=== PATIENT | male | born 1940 | race Caucasian/White ===

== ENCOUNTER → 2016-10-28 10:22 | Outpatient (CLI) | payer MEDICARE, OTHER ==
[2016-04-12 16:15] VITALS: BMI 26.5
[~2016-10-28 10:22] MED LIST: ASPIRIN81 MG PO; BYSTOLIC10 MG PO; CARAFATE1 G PO; Dextrose 50%-Water I IV; GLUCOPHAGE500 MG PO; HEMOCYTE PLUS C1 CAP PO; HYDRALAZINE HC100 MG PO; INSULIN SC; JANUMET 50-1,001 TAB PO; JUNUMET; NEURONTIN 300300 MG PO; NORMODYNE / TR100 MG PO; PRILOSEC20 MG PO; PROSCAR5 MG PO; SYNTHROID75 MCG PO; ZESTORETIC 20-1 EACH PO; ZESTRIL40 MG PO
== END | disposition home or self-care (01) ==
LOC: D.RAD 08:00
DX: J90 Pleural effusion, not elsewhere classified (principal)

== ENCOUNTER 2017-05-05 11:20 | Observation (INO) | payer MEDICARE, OTHER ==
--- NOTE | ~2017-05-05 | HEMODYNAMI ---
PATIENT:BRENDEN ROBERT MEDICAL RECORD: [id number] : 38 LOCATION:[address] ADMISSION DATE: 05/05/17 Generatedon:05/06/20178:04 Patient name: BRENDEN ROBERT Patient #: [id number] SSN: : 1940 Date of study: 05/06/2017 Page: Of Hemodynamic Procedure Report Patient Data Patient Demographics Procedure consent was obtained First Name: BRENDEN Gender: Male Last Name: YESICA : 1940 Middle Initial: H Age: 77 year(s) Patient #: [id number] Race: Unknown Additional ID: [id number] Contact details Address: [address] [place] [address] State: [place] City: [place] Zip code: [address] Past Medical History Allergies: No known allergies Admission Admission Data Admission Date: 05/05/2017 Admission Time: 11:20 Room #: 2114 Procedure Procedure Types Cath Procedure Diagnostic Procedure LHC LHC w/Coronaries Miscellaneous Procedures Moderate Sedation up to 30 minutes Procedure Description Procedure Date Procedure Date: 05/06/2017 Procedure Start Time: 7:44 Procedure End Time: 8:03 Procedure Staff Name Function Willian Rodrigez MD Performing Physician Elizabeth Bermudez RT Scrub Markus Bowman RN Nurse Tonya Arevalo RT Monitor Procedure Data Cath Procedure Fluoroscopy Diagnostic fluoroscopy Total fluoroscopy Time: 3.8 time: 3.8 min min Diagnostic fluoroscopy Total fluoroscopy dose: 727 dose: 727 mGy mGy Contrast Material Contrast Material Type Amount (ml) Isovue 300 70 Entry Location Entry Primary Successful Side Size Upsize Upsize Entry Closure Succes sful Closure Location (Fr) 1 (Fr) 2 (Fr) Remarks Device Remarks Femoral Right 5 Fr Exoseal artery Estimated blood loss: 5 ml Diagnostic catheters Device Type Used For End Catheter Placement Cordis 5Fr JL 4.0 Left Coronary Catheter (MP) Angiography Cordis 5Fr 3DRC Catheter Right Coronary (MP) Angiography Cordis 5Fr Pigtail Aortic Root Catheter (MP) Angiography Diagnostic Infinity 5Fr Internal mammary IM catheter arteriography Procedure Complications No complications Procedure Medications Medication Administration Route Dosage 0.9% NaCl I.V. 100 ml/hr Oxygen NC 2 l/min Heparin Flush Bag added to field 2 bags (1000units/500ml NS) Lidocaine 2% added to field 20 Versed I.V. 1 mg Fentanyl I.V. 50 mcg Hemodynamics Rest Heart Rate: 61 (bpm) Snapshots Pre Cath Intra NCS Post Cath Vital Signs Time Heart Resp SPO2 etCO2 NIBP (mmHg) Rhythm Pain Sedation Rate (ipm) (%) (mmHg) Status Level (bpm) 7:22:39 60 15 98 0 188/82(168) NSR 0 (11) 10(A) , No pain 7:27:34 61 27 99 0 199/82(162) NSR 0 (11) 10(A) , No pain 7:32:29 61 25 98 12 191/78(160) NSR 0 (11) 10(A) , No pain 7:37:22 61 16 93 30.9 178/76(159) NSR 0 (11) 10(A) , No pain 7:43:06 63 14 97 18.1 171/73(149) NSR 0 (11) 9(A) , No pain 7:47:57 64 15 96 24.9 176/74(131) NSR 0 (11) 9(A) , No pain 7:52:48 86 16 97 20.3 171/78(140) NSR 0 (11) 9(A) , No pain 7:57:39 63 15 96 23.4 174/72(148) NSR 0 (11) 9(A) , No pain 8:02:30 62 15 97 11.3 184/75(143) NSR 0 (11) 9(A) , No pain Medications Time Medication Route Dose Verified Delivered Reason Notes Effec tiveness by by 7:25:20 0.9% NaCl I.V. 100 Markus Markus Per ml/hr Colby Bowman physician RN RN 7:25:33 Oxygen NC 2 Markus Markus Per l/min Colby Bowman physician RN RN 7:25:48 Heparin Flush added 2 Markus Markus used for Bag to bags Colby Bowman procedure (1000units/500ml field RN RN NS) 7:26:38 Lidocaine 2% added 20ml Markus Markus for local to vial Lorigan Lorigan anesthetic field RN RN 7:44:24 Versed I.V. 1 mg Markus Markus for Lorigan Lorigan sedation RN RN 7:44:38 Fentanyl I.V. 50 Markus Markus for mcg Lorigan Lorigan sedation RN manager marketing Log Time Note 7:08:55 Tonya Arevalo RT(R) sent for patient. Start room use. 7:08:56 Time tracking: Regular hours 7:09:00 Plan of Care:Hemodynamics will remain stable., Cardiac rhythm will remain stable., Comfort level will be maintained., Respiratory function will remain adequate., Patient/ family verbilizes understanding of procedure., Procedure tolerated without complication., Recovers from procedure without complications.. 7:21:36 Patient received from PCU to CCL 1 Alert and oriented. Tansferred to table in Supine position. 7:21:37 Warm blankets applied, and anuel hugger turned on for patient comfort. 7:21:37 Correct patient and procedure confirmed by team. 7:21:38 Signed procedure consent form obtained from patient. 7:21:39 ECG and BP/O2 sat monitors applied to patient. 7:21:41 Vital chart was started 7:21:41 Full Disclosure recording started 7:22:01 Rhythm: sinus rhythm 7:22:16 H&P Date Dictated: 05/05/2017 Within 30 days and on chart.. 7:22:17 Pre-procedure instructions explained to patient. 7:22:18 Pre-op teaching completed and patient verbalized understanding. 7:22:19 Family in waiting room. 7:22:21 Patient NPO since Midnight. 7:22:26 Patient allergic to No known allergies 7:22:28 Is the patient allergic to Iodine/contrast media? No. 7:22:30 Is patient on blood thinner?No 7:22:32 Patient diabetic? No. 7:22:35 Previous problem with sedation/anesthesia? No ? 7:22:37 Snore? Yes 7:22:38 Sleep apnea? No 7:22:39 Deviated septum? No 7:22:40 Opens mouth fully? Yes 7:22:41 Sticks out tongue? Yes 7:22:42 Airway obstruction? No ? 7:22:44 Dentures? No ? 7:23:26 Pre procedure: right dorsailis pedis pulse 2+ Normal; easily identifiable; not easily obliterated 7:23:29 Patient pain scale 0/10 ?. 7:25:20 0.9% NaCl 100 ml/hr I.V. was administered by Markus Bowman RN; Per physician; 7:25:33 Oxygen 2 l/min NC was administered by Markus Bowman RN; Per physician; 7:25:48 Heparin Flush Bag (1000units/500ml NS) 2 bags added to field was administered by Markus Bowman RN; used for procedure; 7::38 Lidocaine 2% 20ml vial added to field was administered by Markus Bowman RN; for local anesthetic; 7:29:46 IV patent on arrival in left forearm with 0.9% NaCl at [facility]. 7:29:55 Lab results completed and on chart. 7:30:01 Right groin area was prepped with chlora-prep and draped in sterile fashion 7:30:02 Alarms reviewed by R. N. 7:30:03 Sharps counted by scrub and verified by R.N. 7:30:06 Use device set Femoral Dx 7:30:07 Acist Syringe opened to sterile field. 7:30:07 Bag Decanter opened to sterile field. 7:30:07 Medline Cath Pack opened to sterile field. 7:30:08 Terumo 5Fr [place] Sheath opened to sterile field. 7:30:08 St Beni 260cm J .035 wire opened to sterile field. 7:30:09 Acist Hand Control opened to sterile field. 7:30:10 Acist Manifold opened to sterile field. 7:30:10 Diagnostic Infinity 5Fr Multipack catheter opened to sterile field. 7:30:11 Tegaderm 4 x 4 opened to sterile field. 7:30:43 Baseline sample Acquired. 7:36:55 Final Timeout: patient, procedure, and site verified with staff and physician. All members of the team are in agreement. 7:36:57 Right groin site verified by team. 7:37:00 Physical assessment completed. ASA score P 2 - A patient with mild systemic disease as per Willian Rodrigez MD. 7:37:03 Sedation plan: IV Moderate Sedation Versed, Fentanyl 7:38:00 Zero performed for pressure channel P1 7:38:03 Zero performed for pressure channel P1 7:44:24 Versed 1 mg I.V. was administered by Markus Bowman RN; for sedation; 7:44:38 Fentanyl 50 mcg I.V. was administered by Markus Bowman RN; for sedation; 7:44:49 Procedure started. 7:44:55 Local anesthetic to right femoral artery with Lidocaine 2% by Willian Rodrigez MD.INITIAL ACCESS ONLY 7:46:07 A 5 Fr sheath was inserted into the Right Femoral artery 7:46:57 A Cordis 5Fr JL 4.0 Catheter (MP) was advanced over the wire and used for Left Coronary Angiography. 7:49:12 Catheter removed. 7:50:03 A Cordis 5Fr 3DRC Catheter (MP) was advanced over the wire and used for Right Coronary Angiography. 7:51:00 Catheter removed. 7:51:41 Cordis 5Fr Exoseal opened to sterile field. 7:52:26 A Cordis 5Fr Pigtail Catheter (MP) was advanced over the wire and used for Aortic Root Angiography. 7:52:33 Injector settings: Ml/sec: 15, Volume: 30, 7:53:14 Catheter removed. 7:54:09 J wire contaminated. 7:54:42 St Beni 260cm J .035 wire opened to sterile field. 7:54:54 New 260 J wire wire advanced. 7:55:37 A Diagnostic Infinity 5Fr IM catheter was advanced over the wire and used for Internal mammary arteriography. to LAD 7:57:36 Catheter removed. 7:58:21 Sheath removed intact; hemostasis achieved with Exoseal to the Right Femoral artery. 7:58:24 Procedure ended.(Physican Out) 7:58:37 Fluoroscopy time 03.80 minutes. 7:58:46 Fluoroscopy dose: 727 mGy 7:58:46 Flurop Dose total: 727 7:58:51 Contrast amount:Isovue 300 70ml. 7:58:52 Sharps counted by scrub and verified by R.N. 7:58:53 Insertion/operative site no bleeding no hematoma. 7:58:56 Post-op/insertion site Right Femoral artery dressed using a 4 x 4 and Tegaderm. 7:58:59 Post right femoral artery:stable, clean and dry 7:59:01 Post Procedure Pulses reassessed and unchanged 7:59:03 Post-procedure physical assessment completed. ASA score P 2 - A patient with mild systemic disease as per Willian Rodrigez MD. 7:59:05 Post procedure rhythm: unchanged. 7:59:08 Estimated blood loss: 5 ml 7:59:09 Post procedure instruction explained to patient.Patient verbalizes understanding. 7:59:10 Patient needs reinforcement of post procedure teaching. 7:59:20 Procedure type changed to Cath procedure, Diagnostic procedure, LHC, LHC w/Coronaries, Miscellaneous Procedures, Moderate Sedation up to 30 minutes 7:59:27 Procedure Complication : No complications 7:59:30 See physician's report for complete and final results. 8:01:42 Procedure and supply charges have been captured, reviewed, submitted and are correct. 8:03:41 Vital chart was stopped 8:03:44 Report given to PCU. 8:03:49 Patient transfered to PCU with Bed. 8:03:57 Procedure ended. 8:03:57 Full Disclosure recording stopped 8:04:00 End room use (Document Last) Device Usage Item Name Manufacture Quantity Catalog Hospital Part Current Minimal Lo t# / Number Charge Number Stock Stock Serial# Code Acist Acist 1 38020 [id number] 369935 [id number] 20 Syringe Medical [employer] Inc Bag Microtek 1 2002S 401000 99787 [id number] 5 Decanter Medical Inc. Medline Cardinal 1 [id number] [id number] 71753 029885 5 Cath Pack Health Terumo 5Fr Terumo 1 [id number] 078781 026901 279869 [address] [facility] St Beni 2 975887 793597 081211 798117 30 260cm J .035 wire Acist Hand Acist 1 32393 073840 806365 572148 5 Control Medical Systems Inc Acist Acist 1 87314 904367 332514 435246 5 Manifold Medical Systems Inc Diagnostic Cardinal 1 [id number] 897714 84477 381094 30 Infinity Health 5Fr Multipack catheter Tegaderm 4 3M 1 1626W 476587 430672 494222 5 x 4 Cordis 5Fr Cardinal 1 223890 5 JL 4.0 Health Catheter (MP) Cordis 5Fr Cardinal 1 509373 5 3DRC Health Catheter (MP) Cordis 5Fr Cardinal 1 EX500 824765 981842 788621 10 Exoseal Health Cordis 5Fr Cardinal 1 709563 5 Pigtail Health Catheter (MP) Diagnostic Cardinal 1 [id number] 656962 761310 445605 5 Infinity Health 5Fr IM catheter Signature Audit [place] Stage Time Signature Unsigned Intra-Procedure 05/06/2017 Tonya 8:04:10 AM Counts RT(R) Signatures Monitor : Tonya Signature : Counts RT Date : Time : [place] [id number] [place] [id number]
--- NOTE | 2017-05-05 11:30 | NUR ---
PATIENT TO ROOM, PATIENT IS ALERT AND ORIENTED AT THIS TIME. PATIENT AMBULATING AROUND ROOM. DENIES ANY NEEDS, STATES HE HAS BEEN HAVING CHEST PAIN, IT IS EASING UP RIGHT NOW, BUT SOMETIMES IT GETS SEVERE. PUT PATIENT ON 2L/MIN VIA NC OF O2, AND EKG DONE. WILL NOTIFY DR IRIZARRY THAT PATIENT IS HERE. BED LOW AND LOCKED, CALL LIGHT IN REACH. CPOC
--- NOTE | 2017-05-05 13:00 | NUR ---
22 G IV STARTED TO L HAND, SL AT THIS TIME. PATIENT DENIES ANY NEEDS. CPOC
[2017-05-05] MEDS ORDERED: COREG25 MG PO (13:24)
[2017-05-05] MEDS ORDERED: DIOVAN HCT 160/1 TA1 PO (13:24)
[2017-05-05] MEDS ORDERED: SYNTHROID50 MCG PO (13:27)
[2017-05-05] MEDS ORDERED: CRESTOR20 MG PO (13:29)
[2017-05-05 14:26] LABS: ANION GAP 13.5 mmol/L (8-16); CALCIUM 9.2 mg/dL (8.5-10.1); CARBON DIOXIDE 23.4 mmol/L (21.0-32.0); CREATININE - SERUM 2.2 mg/dL (0.6-1.3); POTASSIUM - SERUM 4.9 mmol/L (3.5-5.1)
[2017-05-05] MEDS ORDERED: NORMODYNE / TR100 MG PO (14:47)
[2017-05-05 15:00] LABS: HEMATOCRIT 30.3 % (42.0-54.0); HEMOGLOBIN 10.2 g/dL (13.5-17.5); MCH 29.4 pg (26.0-34.0); MCHC 33.7 g/dL (31.0-37.0); MCV 87.3 fL (80.0-100.0); MEAN PLATELET VOLUME 10.7 fL (7.4-10.4); RBC 3.47 10x6/uL (4.20-6.10); RDW 13.1 % (11.5-14.5); WBC 4.7 10x3/uL (4.8-10.8)
[2017-05-05 15:01] LABS: PLATELET COUNT 90 10x3/uL (130-400)
[2017-05-05 15:18] LABS: PLATELET ESTIMATE DECREASED
[2017-05-05 15:28] LABS: CKMB 2.1 U/L (0.0-3.6); CREATINE KINASE 114 UL (21-232); TROPONIN-I < 0.017 ng/mL (0.000-0.060)
[2017-05-05 16:35] VITALS: BP 182/72; BMI 26.3
--- NOTE | 2017-05-05 17:12 | NUR ---
PATIENT FSBS 181, REFUSED INSULIN AT THIS TIME, STATES HE DOES NOT TAKE INSULIN AT HOME. WILL MONITOR, CPOC
--- NOTE | 2017-05-05 17:40 | HP ---
PATIENT: BRENDEN ROBERT MEDICAL RECORD: [id number] ACCOUNT: [id number] LOCATION:[address] : 39 ADMISSION DATE: 05/05/17 HISTORY AND PHYSICAL EXAMINATION NameBRENDEN ROBERT (77yo, M) ID# [id number]. Date/Time05/05/2017 09:12IDYXD25/24/193[facility] Dept.NPP_[facility] ClinicProviderEDSHAISTA ESCAMILLA MDInsuranceMed Primary: [place] Insurance # : [id number] PCP : BAYLEE ORME Referring Provider Name : BAYLEE ROME Employer Name : RETIRED Med Secondary: FAMILY LIFE (MEDICARE SUPPLEMENT) Insurance # : [id number] PCP : BAYLEE ROME Referring Provider Name : BAYLEE ROME Employer Name : RETIRED Prescription: CMX - Member is eligible. 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/12/16 Patient's Care Team Primary Care Provider (): BAYLEE ROME: [address] [place] [address] , [address], [place] [address], , Referring Provider (): BAYLEE ROME: [address] [place] [address] , [address], [place] [address], , City Recorder: ISABELL IRIZARRY MD: [address] [place] [address] [address], [place] [address], , [facility] ([facility]): [address], [place] [address], , Vitals BP:130/70 sitting R arm 05/05/2017 10:06 amHR:60R/R 05/05/2017 10:06 amHt:6 ft 2 in 05/05/2017 10:03 amWt:205 lbs 05/05/2017 10:05 amBMI:26.3 05/05/2017 10:05 amAllergies Reviewed Allergies NKDAMedications Reviewed Medications Accu-Chek Nasra Plus Meter TO TEST BLOOD SUGAR08/19/16 filledsurescriptsAccu-Chek Nasra Plus test strips TEST BLOOD SUGAR QAM TO MONITOR BLOOD GLUCOSE BEFORE RQMLPIWQA41/31/17 filledsurescriptsAccu-Chek Softclix Lancets TEST ONCE QAM08/19/16 filledsurescriptsALPRAZolam 0.5 mg edubdg73/17/16 filledCaremarkaspirin 81 mg chewable tablet BACK SIZER 1 T PO D002/20/16 filledsurescriptsatorvastatin 40 mg eourex84/06/17 filledCaremarkBD Insulin Pen Needle UF Mini 31 gauge x 09/30" FOR ONCE DAILY USE WITH FGEKZE87/27/16 filledCaremarkcarvedilol 25 mg /21/17 filledCaremarkcholecalciferol (vitamin D3) 1,000 unit tablet TK 1 T PO D009/17/16 filledsurescriptsfinasteride 5 mg tablet TK 1 T PO QD05/10/16 filledsurescriptsfurosemide 20 mg fqaoax95/11/17 filledCaremarkgabapentin 100 mg capsule TK 1 C PO TID02/09/17 filledsurescriptsgabapentin 300 mg capsule TK 1 C PO TID108/19/15 filledsurescriptshydrALAZINE 100 mg tablet TK 1 T PO Q 12 H002/11/17 filledsurescriptsketoconazole 2 % shampoo APPLY TO THE AFFECTED AREA(S), LATHER, LEAVE IN PLACE FOR 5 MINUTES, AND THEN RINSE HISTORY AND PHYSICAL [id number] YESICABRENDEN H OFF WITH WATER BY TOPICAL ROUTE ONCE DAILY07/14/16 filledsurescriptslabetalol 100 mg tablet TK 1 T PO BID02/18/17 filledsurescriptslevoFLOXacin 500 mg tablet Take 1 tablet(s) every 24 hours by oral route for 5 days.04/21/17 filledCaremarklevothyroxine 75 mcg tablet TK 1 T PO QD02/19/17 filledsurescriptslisinopril 20 mg /11/17 filledCaremarkmethylPREDNISolone 4 mg tablets in a dose pack DIRECTED ON PACKAGE FFWLSFQIGRTK78/05/17 filledCaremarkneomycin 3.5 mg/g-polymyxin B 10,000 unit/g-dexameth 0.1 % eye oint01/05/17 filledCaremarkomeprazole 20 mg capsule,delayed release TK 2 CS PO ONCE A DAY09/14/16 filledCaremarkpotassium chloride ER 20 mEq tablet,extended release(part/cryst) TK 1 T PO QD FOR 21 DAYS04/29/16 filledsurescriptspromethazine-DM 6.25 mg-15 mg/5 mL syrup TK 5 ML PO Q 6 H PRN1 filledsurescriptsrosuvastatin 20 mg tablet TK 1 T PO ASVFKRF22/07/17 filledsurescriptstamsulosin 0.4 mg capsule TK 1 C PO QD02/09/17 filledsurescriptsvalsartan 160 mg-hydrochlorothiazide 25 mg tablet TK 1 T PO QD03/24/17 filledsurescripts Some medications listed in Document: #[id number] could not be added to this patient's chart. Please review this document and add these medications to the patient's chart manually as needed. Vaccines Reviewed Vaccines Vaccine TypeDateAmt.RouteSiteLot #Mfr.Exp. DateDate on VISVIS GivenVaccinatorInfluenzainfluenza, injectable, axmjitalfmsd47/11/17influenza, seasonal, tualjejqje98/02/13Some vaccines listed in Document: #[id number] could not be added to this patient's chart. Please review this document and add these vaccines to the patient's chart manually as needed. 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 Iron deficiency anemia Anemia Continuous chronic alcoholism Stress Aortic valve disorder Essential hypertension Coronary arteriosclerosis Ischemic heart disease Aortic valve stenosis Pleural effusion Chronic gastritis Gastritis Irritable bowel syndrome with diarrhea Gastrointestinal hemorrhage HISTORY AND PHYSICAL [id number] BRENDEN ROBERT Chronic renal failure Chronic renal impairment Benign prostatic hyperplasia Benign prostatic hypertrophy without outflow obstruction Neck pain Pes planus Acquired hallux rigidus Deformity of foot Headache Heart murmur Abdominal pain Bunion Family History Reviewed Family History Unspecified Relation- Diabetes mellitus - Siblings (previously recorded as Diabetes) - Hypercholesterolemia - Brother (previously recorded as High Cholesterol) - Depressive disorder - Brother (previously recorded as Depression) - Cerebrovascular accident - Siblings (previously recorded as Stroke) - Hypertensive disorder - Siblings (previously recorded as High Blood Pressure) - Heart disease - SiblingsSocial History Reviewed Social History Cardiology and General Smoking Status: Former smoker (Notes: quit 25 yrs ago) High Cholesterol: Y High blood pressure: Y Alcohol intake: Occasional (Notes: 10/wk) Occupation: Retired [employer] Marital status: Advance directive: Y Is blood transfusion acceptable in an emergency?: Y Education: 12 Caffeine intake: Occasional Surgical History Reviewed Surgical History Other - right foot Other - 04/12/2016 - CT guided L thoracentesis, Dr Caroline Miles CABG - 03/12/2016 Other - 2013 - prostate Other - 2010 - right knee Other - 2003 - left knee Past Medical History Reviewed Past Medical History Anemia: Y Blurred Vision: Y Carotid Stenosis: Y Coronary Artery Disease: Y Diabetes: Y Heart Failure: Y Heart Murmur: Y High Blood Pressure: Y Joint Pain or Swelling: Y Shortness of Breath: Y HISTORY AND PHYSICAL [id number] BRENDEN ROBERT Notes: has been treated in past for alcoholism and still drinks two glasses of wine daily Documents for Discussion N/A Screening None recorded. HPI Coronary Artery Disease F/U Reported by patient. Severity: chest discomfort with household activities/yard work; "I feel like an elephant is sitting on my chest." Associated Symptoms: chest pain with exertion aortic valve replacement Coronary artery bypass ROS Patient reports abdominal pain but reports no vomiting, normal appetite, no diarrhea, not vomiting blood, no nausea, and no constipation. He reports arthralgias/joint pain but reports no muscle aches, no muscle weakness, no back pain, and no swelling in the extremities. He reports no loss of consciousness, no weakness, no numbness, no seizures, no dizziness, and no headaches; pain in feet. He reports no fever, no night sweats, no significant weight gain, no significant weight loss, and no exercise intolerance. He reports no chest pain, no a rm pain on exertion, no shortness of breath when walking, no shortness of breath when lying down, no palpitations, and no known heart murmur. He reports no cough, no wheezing, no shortness of breath, and no coughing up blood. He reports no incontinence, n o difficulty urinating, no hematuria, and no increased frequency. He reports no abnormal mole, no jaundice, and no rashes. He reports no depression, no sleep disturbances, feeling safe in relationship, and no alcohol abuse. ROS as noted in the HPI Physical Exam Patient is a 77-year-old male. Constitutional: General Appearance: healthy-appearing, well-nourished, and well-developed. Level of Distress: NAD. Ambulation: ambulating normally. Psychiatric: Insight: good judgement. Mental Status: normal mood and affect and active and alert. Orientation: to time, place, and person. Memory: recent memory normal and remote memory normal. Head: Head: normocephalic and atraumatic. Lungs: Respiratory effort: no dyspnea. Percussion: no dullness, flatness, or hyperresonance. Auscultation: no wheezing, rales/crackles, or rhonchi and breath sounds normal, good air movement, and CTA except as noted. Cardiovascular: Apical Impulse: not displaced. Heart Auscultation: normal S1 and S2; no murmurs, rubs, or gallops; and RRR. Neck vessels: no carotid bruits. Pulses including femoral / pedal: normal throughout. Musculoskeletal:: Motor Strength and Tone: normal and normal tone. Joints, Bones, and Muscles: no contractures, malalignme nt, or bony abnormalities and normal movement of all extremities and tenderness. Extremities: no cyanosis, edema, varicosities, or palpable cord. Skin: Inspection and palpation: no rash, lesions, ulcer, induration, nodules, HISTORY AND PHYSICAL [id number] YESICA,BRENDEN H jaundice, or abnormal nevi and good turgor. Nails: normal. Back: Thoracolumbar Appearance: kyphosis. Assessment / Plan aortic valve replacement Coronary artery bypass Angina 1. Coronary arteriosclerosis I25.10: Atherosclerotic heart disease of [place] coronary artery without angina pectoris Discussion Notes needs admission and cardiac catheterization Return to Office None recorded. NILAM ESCAMILLA MD at 1740 CC: [id number] DICTATION DATE: 05/05/17 0945 RETAIL MAINTENANCE TECHNICIAN: MOUNIKA 05/05/17 1307 ADM IN [facility] [address] [place] [address]
--- NOTE | 2017-05-05 17:46 | NUR ---
PATIENT SITTING UP IN BED EATING DINNER, DENIES ANY PAIN AT THIS TIME. CPOC
--- NOTE | 2017-05-05 18:41 | NUR ---
PATIENT SITTING UP IN BED, CONSENTS SIGNED FOR TOMORROWS BUSINESS PROJECT ANALYST. PATIENT DENIES ANY NEEDS. CPOC
--- NOTE | 2017-05-05 19:32 | NUR ---
ASSESSMENT COMPELTE, A&O. RESPERATIONS EVEN ON AT 2 LITER VIA NC. IV TO LEFT HAND SL, SITE CLEAN AND DRY. PT DENIES PAIN OR NEEDS AT THIS TIME, BED LOW, CL IN REACH.
[2017-05-05 20:00] VITALS: BP 173/66
[2017-05-05 20:43] LABS: CKMB 1.5 U/L (0.0-3.6); CREATINE KINASE 93 UL (21-232); TROPONIN-I 0.019 ng/mL (0.000-0.060)
--- NOTE | 2017-05-05 21:24 | NUR ---
HS MEDS GIVEN WITH FRESH ICE WATER, BS 144, NO COVERAGE GIVEN PER S/S. PT DENIES PAIN OR NEEDS BED LOW, CL IN REACH.
--- NOTE | 2017-05-06 00:14 | NUR ---
TRANSIT DRIVER AT BED SIDE TO OBTAIN VITALS, PT DENIES NEEDS.
--- NOTE | 2017-05-06 02:12 | NUR ---
RESTING WITH EYES CLOSED, RESPERATIONS EVEN, NO S/S DISTRESS NOTED.
[2017-05-06 02:21] LABS: CKMB 1.3 U/L (0.0-3.6); CREATINE KINASE 82 UL (21-232); TROPONIN-I 0.019 ng/mL (0.000-0.060)
--- NOTE | 2017-05-06 02:24 | NUR ---
LYING IN BED, CALL LIGHT IN REACH. WILL CONTINUE WITH PLAN OF CARE. 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
[2017-05-06 04:00] VITALS: BP 145/68
--- NOTE | 2017-05-06 06:35 | NUR ---
TOP LIFT AND AUTOMATIC WINDOW REPAIRER AT BED SIDE FOR HIBICLENSE BATH.
--- NOTE | 2017-05-06 07:16 | NUR ---
TO PHOTOGRAPHY ASSISTANT PER BED
--- NOTE | 2017-05-06 08:20 | NUR ---
PATIENT RETURNED FROM NUCLEAR MEDICINE PHYSICIAN PER BED. DRESSING CLEAN AND DRY. NO C/O PAIN OR DISCOMOFRT. ASSESSMENT DONE. STATES NO NEEDS AT THIS TIME.
--- NOTE | 2017-05-06 09:49 | NUR ---
BACK FROM LAWYER PROBATE. AT BS. CALL LIGHT IN REACH. WILL CONT. PLAN OF CARE.
--- NOTE | 2017-05-06 12:52 | NUR ---
NO C/O PAIN OR DISCOMFORT. DRESSING DRY AND CLEAN. PATIENT DC HOME PER FAMILY VEHICLE.
--- NOTE | 2017-05-13 16:56 | EC ---
PATIENT:BRENDEN ROBERT DATE OF SERVICE: 05/05/17 SEX: M MEDICAL RECORD: [id number] DATE OF : 38 LOCATION:D. D.211 AGE OF PATIENT: 77 ADMISSION DATE: 05/05/17 REFERRING PHYSICIAN: INTERPRETING PHYSICIAN: STEFANO ETIENNE MD ECHOCARDIOGRAM REPORT ECHO CHARGES 4 ECHO COMPLETE CLINICAL DIAGNOSIS: UNSTABLE ANGINA HX OF CAD/CABG ECHOCARDIOGRAPHIC MEASUREMENTS (adult normal given) AC root (d.<3.7cm) 3.3 cm LV Septum d (<1.2 cm> 1.5 cm Valve Excursion 1.5 cm LV Septum (systole) 1.9 cm Left Atria (s.<4.0cm> 4.6 cm LVPW d(<1.2cm) 1.9 cm RV (d.<2.3cm) 5.1 cm LVPW (sytole) 2.0 cm LV diastole(<5.6CM) 6.0 cm MV E-F(>70mm/sec) cm LV systole 3.9 cm LVOT Diameter 1.8 cm MV exc.(>10mm) 1.9 cm Est.ejection fraction (50-75%) % Pericardial Effusion N DOPPLER: LVIT cm/sec A 102 cm/sec E 94.0 cm/sec LA cm/sec RVSP 28 mmHg LVOT 92 cm/sec AOP1/2T m/s Asc. Ao 218 cm/sec RVOT 99 cm/sec RA cm/sec PA 143 cm/sec AV Gradient Peak 19.03mmHg AV Mean 9.77 mmHg AV Area 1.2 cm MV Gradient Peak 4.67 mmHg MV Mean 2.32 mmHg MV Area cm COMMENTS: Model Technician: Keagan JACOBSON Geospatial Specialist: 2 Dr. Rodrigez TAPE# PACS DATE OF SERVICE: 05/05/2017 Echocardiogram FINDINGS: 1. Left ventricular chamber size is mildly dilated. Left ventricular systolic function is preserved. Overall ejection fraction estimated at 55%. 2. The left atrium is mildly dilated at 4.6 cm. Right atrium and right ventricular chamber sizes are as well mildly dilated. 3. 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 Valve area calculates 1.2 cm-squared. There is gradient of 19 mm across the valve. The remaining valvular structures have normal structure and motion. 4. Doppler interrogation only reveals mild tricuspid regurgitation. No other valvular insufficiency or stenosis. 5. No evidence of pericardial effusion or left ventricular thrombus. TRANSINT:[id number] Voice Confirmation ID: [id number] DOCUMENT ID: [id number] STEFANO ETIENNE MD at 1656 CC: [id number] DICTATION DATE: 05/05/17 1550 BASIN TENDER: 05/05/17 2018 DIS IN 05/06/17 [id number] [place] [address]
== END 2017-05-06 15:25 | disposition home or self-care (01) ==
LOC: D.M2 11:20 → OBSVTIME 11:21 → D.M2 05-06 15:25
PROVIDERS: ADMIT Internal Medicine Cardiovascular Disease
DX: R07.89 Other chest pain (principal); I25.10 Atherosclerotic heart disease of native coronary artery without angina pectoris; Z95.1 Presence of aortocoronary bypass graft; I10 Essential (primary) hypertension; Z87.891 Personal history of nicotine dependence; E11.40 Type 2 diabetes mellitus with diabetic neuropathy, unspecified

== ENCOUNTER 2017-06-23 10:59 | Outpatient (CLI) | payer MEDICARE, OTHER ==
[~2017-06-23] VITALS: Ht 188 cm; Wt 95.0 kg
[~2017-06-23 10:59] MED LIST changes: +COREG25 MG PO; +CRESTOR20 MG PO; +DIOVAN HCT 160/1 TA1 PO; +SYNTHROID50 MCG PO
[2017-06-23 12:12] LABS: BASOPHILS 0.4 % (0-2); HEMATOCRIT 28.9 % (42.0-54.0); HEMOGLOBIN 9.6 g/dL (13.5-17.5); LYMPHOCYTES 14.4 % (15-50); MCH 29.4 pg (26.0-34.0); MCHC 33.2 g/dL (31.0-37.0); MCV 88.7 fL (80.0-100.0); MEAN PLATELET VOLUME 10.2 fL (7.4-10.4); MONOCYTES 10.8 % (2-11); NEUTROPHILS 71.4 % (40-80); PLATELET COUNT 90 10x3/uL (130-400); RBC 3.26 10x6/uL (4.20-6.10); RDW 13.6 % (11.5-14.5); WBC 4.6 10x3/uL (4.8-10.8)
[2017-06-23 12:33] VITALS: Ht 188 cm; Wt 95.0 kg
[2017-06-23 12:35] LABS: ANION GAP 12.5 mmol/L (8-16); CALCIUM 8.9 mg/dL (8.5-10.1); CARBON DIOXIDE 26.2 mmol/L (21.0-32.0); CREATININE - SERUM 2.5 mg/dL (0.6-1.3); POTASSIUM - SERUM 4.7 mmol/L (3.5-5.1)
[2017-06-23 12:38] LABS: INR 1.24 (0.85-1.17); PROTIME 15.2 SECONDS (11.6-15.0)
[2017-06-23 13:01] LABS: APTT 33.4 SECONDS (22.8-39.4)
[2017-06-23 16:06] LABS: PROTEIN - BODY FLUID 3.8 G/DL
--- NOTE | 2017-06-23 16:31 | NUR ---
1430--ALL VITAL SIGNS CHARTED ON POST PROCEDURE VITAL SIGN SHEET ON CHART. MARIA R THOMAS
[2017-06-23 17:02] LABS: MACROPHAGES BF 4 %; NEUT - BF 4 %
--- NOTE | 2017-06-23 17:08 | NUR ---
1645 REPORT FROM STONEY VALDEZ R.N. PATIENT RESTING RESP NONLABORED. DENIES SOB. JESS DIRECT MARKETING EXECUTIVE CALLED EARLIER AND STATED NO PNEUMO AND THAT CHEST XRAY WAS OKAY. CLARIFIED ORDER HOME AT 1800.
--- NOTE | 2017-06-23 18:10 | NUR ---
1750 WENT OVER DISCHARGE INSTRUCTIONS AND VERBALLY UNDERSTANDS.
--- NOTE | 2017-06-23 18:11 | NUR ---
1800 TO HOME VIA W/C WITH .
[2017-06-24 16:13] LABS: AFB SPECIMEN PROCESSING Not Indicated (())
[2017-06-27 10:10] LABS: FUNGUS STAIN Final report (())
[2017-07-22 13:14] LABS: FUNGUS MYCOLOGY CULTURE Final report (())
[2017-08-12 11:18] LABS: ACID FAST CULTURE Negative (()); ACID FAST SMEAR Negative (())
== END 2017-06-23 18:00 | disposition home or self-care (01) ==
LOC: D.OPS 10:59 → D.CT 13:00 → D.OPS 13:00 → D.CT 06-24 11:00
PROVIDERS: Radiology Diagnostic Radiology
DX: J90 Pleural effusion, not elsewhere classified (principal); Z01.812 Encounter for preprocedural laboratory examination; R06.02 Shortness of breath

== ENCOUNTER → 2017-06-30 11:29 | Outpatient (CLI) | payer MEDICARE, OTHER ==
[2017-06-23 12:33] VITALS: BMI 26.9
== END | disposition home or self-care (01) ==
LOC: D.CT 11:29
DX: J90 Pleural effusion, not elsewhere classified (principal)

== ENCOUNTER → 2017-12-07 11:01 | Outpatient (CLI) | payer MEDICARE, OTHER ==
[2017-06-23 12:33] VITALS: BMI 26.9
== END | disposition home or self-care (01) ==
LOC: D.RAD 11:00
DX: R06.00 Dyspnea, unspecified (principal)

== ENCOUNTER 2018-05-18 05:20 | Day surgery (SDC) | payer MEDICARE, OTHER ==
[2018-05-17 16:08] LABS: BASOPHILS 0.5 % (0-2); EOSINOPHILS 3.4 % (0-7); HEMATOCRIT 30.1 % (42.0-54.0); HEMOGLOBIN 10.1 g/dL (13.5-17.5); IMMATURE GRANULOCYTES 0.2 % (0-5); LYMPHOCYTES 13.3 % (15-50); MCH 29.1 pg (26.0-34.0); MCHC 33.6 g/dL (31.0-37.0); MCV 86.7 fL (80.0-100.0); MEAN PLATELET VOLUME 10.4 fL (7.4-10.4); MONOCYTES 11.4 % (2-11); NEUTROPHILS 71.2 % (40-80); PLATELET COUNT 105 10x3/uL (130-400); RBC 3.47 10x6/uL (4.20-6.10); RDW 13.9 % (11.5-14.5); WBC 6.3 10x3/uL (4.8-10.8)
[~2018-05-18] VITALS: Ht 188 cm; Wt 97.5 kg
--- NOTE | ~2018-05-18 | OP ---
PATIENT NAME: BRENDEN ROBERT MEDICAL RECORD: [id number] :38 LOCATION:[facility] ADMISSION DATE: SURGEON: DENNYS ASHRAF MD DATE OF OPERATION: 05/18/2018 SURGEON: Dennys Ashraf MD LIME SLUDGE MIXER: CARMEN by Sean Avila CRNA. OPERATIVE DIAGNOSIS: Bladder outlet obstruction. PROCEDURE: Cystoscopy. FINDINGS: No urethral stricture. Residual bilateral lateral lobe at the prostatic apex. Otherwise, open bladder neck, with single ureteral orifices bilaterally. No bladder tumors. There is phimosis and a right hydrocele. BLOOD LOSS: None. CLINICAL HISTORY: This is a 78-year-old male, who complains of difficulty voiding. He feels that he has to urinate every 2 hours at night and the stream is weak. Five years ago, he had a TURP by Dr. Botello. Once this trouble with voiding recurred, he tried finasteride and tamsulosin without any help. He stopped using these medications 3 months ago. On physical examination, he does have quite tight phimosis and he has a large right hydrocele. He comes today for cystoscopy in case there is a urethral stricture or bladder neck contracture from his TURP. He is not allergic to any medications. He was given Ancef production drilling machine operator to the OR. DESCRIPTION OF PROCEDURE: The patient was given IV sedation. He was then placed into dorsal lithotomy position and prepped and draped. Lidocaine jelly was inserted into the urethra. Cystoscopy was performed using a 17-Korean cystoscope with 30-degree lens. The patient has quite tight phimosis and the foreskin could not be retracted at all. The opening is rather narrow and may serve as the outlet obstruction. The scope managed to find the urethral meatus and we went into the penile urethra. There are no strictures in the penile urethra. There is obstructive residual lateral lobe at the apex of the prostate. However, going a bit more proximally, the prostate is very well resected and the bladder neck is wide open. Going into the bladder, no bladder tumors were seen and he has single ureteral orifices on each side. No bladder tumors were seen. We then drained his bladder through the cystoscope sheath and then the scope was removed. I will see him in followup to discuss whether the residual apical nodules of the prostate need to be treated or whether he should have a circumcision or both. TRANSINT:[id number] Voice Confirmation ID: [id number] DOCUMENT ID: [id number] OPERATIVE REPORT [id number] BRENDEN ROBERT, DENNYS Browne MD at 0840 CC: [id number] DICTATION DATE: 05/18/18824 INDUSTRIAL PLANT CUSTODIAN: 05/18/18 08[id number] [place] [id number]
[~2018-05-18 05:20] MED LIST changes: +AVAPRO150 MG PO; +BASAGLAR K100 UNIT/1 SC; +FUROSEMIDE20 MG PO; +GABAPENTIN100 MG PO; -NEURONTIN 300300 MG PO; -SYNTHROID50 MCG PO
[2018-05-18 06:06] VITALS: BP 154/61; Ht 188 cm; Wt 97.5 kg
== END 2018-05-18 09:05 | disposition home or self-care (01) ==
LOC: D.OPS 05:20 → D.PAN 08:00 → D.OPS 09:05 → D.PAN 11:25 → D.OPS 12:15 → D.PAN 05-23 10:30 → D.OPS 05-23 10:30
PROVIDERS: Anesthesiology
DX: N47.1 Phimosis (principal); N43.3 Hydrocele, unspecified; Z01.812 Encounter for preprocedural laboratory examination

== ENCOUNTER → 2018-05-31 09:30 | Outpatient (CLI) | payer MEDICARE, OTHER ==
[2018-05-18 06:06] VITALS: BMI 27.6
== END | disposition home or self-care (01) ==
LOC: D.RAD 09:30
DX: J90 Pleural effusion, not elsewhere classified (principal)

== ENCOUNTER 2018-06-02 07:36 | Outpatient (CLI) | payer MEDICARE, OTHER ==
[~2018-06-02] VITALS: Ht 188 cm; Wt 96.4 kg
[2018-06-02 08:02] LABS: BASOPHILS 0.5 % (0-2); EOSINOPHILS 3.6 % (0-7); HEMATOCRIT 29.3 % (42.0-54.0); HEMOGLOBIN 9.8 g/dL (13.5-17.5); IMMATURE GRANULOCYTES 0.2 % (0-5); LYMPHOCYTES 10.8 % (15-50); MCH 29.3 pg (26.0-34.0); MCHC 33.4 g/dL (31.0-37.0); MCV 87.5 fL (80.0-100.0); MEAN PLATELET VOLUME 10.3 fL (7.4-10.4); MONOCYTES 7.7 % (2-11); NEUTROPHILS 77.2 % (40-80); PLATELET COUNT 107 10x3/uL (130-400); RBC 3.35 10x6/uL (4.20-6.10); WBC 5.6 10x3/uL (4.8-10.8)
[2018-06-02 08:10] LABS: ANION GAP 14.7 mmol/L (8-16); CALCIUM 8.9 mg/dL (8.5-10.1); CARBON DIOXIDE 21.8 mmol/L (21.0-32.0); CREATININE - SERUM 2.3 mg/dL (0.6-1.3); POTASSIUM - SERUM 4.5 mmol/L (3.5-5.1)
[2018-06-02 08:11] LABS: APTT 33.9 SECONDS (22.8-39.4); INR 1.21 (0.85-1.17)
[2018-06-02 08:42] VITALS: BP 190/77; Ht 188 cm; Wt 96.4 kg
[2018-06-02 12:01] LABS: PROTEIN - BODY FLUID 3.6 G/DL
[2018-06-02 13:20] LABS: EOS BF 1 %; MACROPHAGES BF 1 %; MESOTHELIALS BF 2 %; NEUT - BF 87 %
[2018-06-03 19:08] LABS: ACID FAST SMEAR Negative (()); AFB SPECIMEN PROCESSING Not Indicated (())
[2018-06-05 11:16] LABS: FUNGUS STAIN Final report (())
[2018-06-08 15:08] LABS: FUNGUS MYCOLOGY CULTURE Preliminary report (())
== END 2018-06-02 14:50 | disposition home or self-care (01) ==
LOC: D.SP 07:36 → D.CT 10:00 → D.SP 10:00
PROVIDERS: Radiology Diagnostic Radiology
DX: J90 Pleural effusion, not elsewhere classified (principal); Z01.812 Encounter for preprocedural laboratory examination

== ENCOUNTER 2018-09-07 08:15 | Day surgery (SDC) | payer MEDICARE, OTHER ==
[~2018-09-07] VITALS: Ht 188 cm; Wt 97.5 kg
[~2018-09-07 08:15] MED LIST changes: +ENTRESTO 97 MG1 EACH PO
[2018-09-07 08:47] LABS: HEMATOCRIT 31.7 % (42.0-54.0); HEMOGLOBIN 10.6 g/dL (13.5-17.5); MCHC 33.4 g/dL (31.0-37.0); MCV 86.6 fL (80.0-100.0); MEAN PLATELET VOLUME 10.1 fL (7.4-10.4); RBC 3.66 10x6/uL (4.20-6.10); RDW 13.6 % (11.5-14.5); WBC 3.9 10x3/uL (4.8-10.8)
[2018-09-07 08:55] LABS: ANION GAP 14.7 mmol/L (8-16); CALCIUM 8.7 mg/dL (8.5-10.1); CARBON DIOXIDE 23.4 mmol/L (21.0-32.0); CREATININE - SERUM 2.7 mg/dL (0.6-1.3); POTASSIUM - SERUM 4.1 mmol/L (3.5-5.1)
[2018-09-07 09:03] LABS: PLATELET COUNT 83 10x3/uL (130-400)
[2018-09-07 10:20] LABS: PLATELET ESTIMATE DECREASED
[2018-09-07 11:05] VITALS: BP 168/75; Ht 188 cm; Wt 97.5 kg
--- NOTE | 2018-09-07 18:55 | NUR ---
4300-DISCHARGED HOME VIA WHEELCHAIR.
--- NOTE | 2018-09-08 08:04 | OP ---
PATIENT NAME: BRENDEN ROBERT MEDICAL RECORD: [id number] :38 LOCATION:[facility] ADMISSION DATE: SURGEON: HEMANTH ASHRAF MD DATE OF OPERATION: 09/07/2018 SURGEON: Hemanth Ashraf MD ANESTHESIA: General anesthesia by Ji Valles CRNA PREOPERATIVE DIAGNOSES: Phimosis, bladder outlet obstruction due to benign prostatic hyperplasia, right hydrocele. PROCEDURE: Cystoscopy, UroLift times 4 implants, circumcision, right hydrocelectomy with the Jaboulay procedure. FINDINGS: Severe phimosis. The patient required a dorsal slit to be made before the cystoscope could be introduced. On cystoscopy, he has no urethral strictures. There is a well resected prostate, but obstructive bilateral apical lobes are present. Single ureteral orifices are present bilaterally with no bladder tumors. Finally, right hydrocele. SPECIMENS: Right hydrocele sac. ESTIMATED BLOOD LOSS: Minimal. CLINICAL HISTORY: This is a 78-year-old male, who has obstructive voiding symptoms, which are not responding to tamsulosin and finasteride. He had a TURP by Dr. Botello 5 years ago. On cystoscopy on 05/18/2018, he had residual apical lateral lobe of the prostate, which were causing obstruction. Otherwise, the rest of the prostate had been well resected. There was no bladder neck contracture. He still has nocturia times 1 to2 and a slow urinary stream. He has urgency with occasional urge incontinence. Urinary frequency is every 1 hour. This has been present since the TURP. IPSS is 18 and quality of life score is 4. On digital rectal examination, he has a small nodular prostate approximately 30 grams in size. He has a very tight phimosis, which is causing him difficulty now as well as a large right hydrocele. He wished to have all the things corrected in one setting. He is not allergic to any medications. He was given Ancef contact lens cutter to the OR. DESCRIPTION OF PROCEDURE: The patient was given induction of general anesthesia. He was then placed into dorsal lithotomy position and prepped and draped. The cystoscope could not be introduced easily because of the tight phimosis. We therefore performed a dorsal slit. A straight clamp was used to crush the dorsal penile foreskin along the longitudinal axis of the penis. A Metzenbaum scissors were then used to make the dorsal slit. Finally, we could pull the foreskin back far enough to expose the entire glans penis. The glans penis was prepped with iodine and the smegma was removed. The UroLift scope was then introduced. No urethral strictures were seen. Findings are as outlined before. The first 2 units were placed in the anterior lateral lobes at the verumontanum level to open up the residual apical tissue. These went in without any incident and opened up the area at the apex. I placed 2 more near to the bladder neck. They were placed at a lower plane which corresponded more to the midpoint of the prostatic urethra rather than the anterior portion of the left lateral lobe. The reason for this is that the prostatic urethra is actually relatively short and we were doing more of a box configuration. These latter OPERATIVE REPORT [id number] BRENDEN ROBERT two units were placed, one on each side without incident. Now, he has a wide open prostatic urethra. The bladder was emptied through the cystoscope sheath. The patient was then placed into supine position and he was reprepped and redraped. Since he already had a dorsal slit, we continued to the full circumcision. The penile skin was retracted back and a line of incision was marked using a marking pen at about 5 mm from the de dios of the glans. A 2-0 silk stitch was placed to the glans penis and the penis was pulled into full erection length. The cutaneous foreskin was then brought back to its normal anatomical position and the corresponding line of incision was marked using a marking pen. The 2 incision lines were made using a #15 blade. The dartos tissue between them was dissected using Metzenbaum scissors. Finally, the entire foreskin between the 2 incision lines was free and it was sent to pathology as foreskin tissue for diagnosis. Any bleeding in the dartos fascia was coagulated. The skin edges were reapproximated using simple interrupted 4-0 Vicryl. We then turned our attention to the hydrocele. A midline incision was marked out in the median raphe for a distance of about 2.5 cm. The incision was made using #15 blade. Using the blade, I went through the dartos fascia. Eventually, we came to the hydrocele sac, which is tunica vaginalis. This was opened up using a #15 blade. Allis clamps were used to hold the tunica vaginalis apart. We were able to evacuate a large quantity of hydrocele fluid present. The testicle was then everted out of its hemiscrotum. The excess tunica vaginalis, which formed the hydrocele sac was excised using the Bovie. The 2 flaps of the tunica vaginalis was then reapproximated posterior to the cord. This is the Jaboulay procedure. Running 3-0 Vicryl was used for this. All bleeding points were coagulated. The testicle was then placed back into its hemiscrotum. The dartos fascia was reapproximated using simple interrupted 4-0 Vicryl. Finally, the scrotal skin was reapproximated using simple interrupted 4-0 Vicryl. A dressing consisting of Xeroform and a fluff gauze was placed on the circumcision incision. This was also placed around the scrotal incision of the hydrocele drainage procedure. Mesh panties were given to the patient. The patient will be going home today with a prescription for [place] 5/325. If he is unable to void after anesthesia, then we will have to send him home with his indwelling Slaughter catheter and he will have to have a voiding trial tomorrow. Otherwise, I will see him in followup in 1 month's time to check on wound healing. TRANSINT:[id number] Voice Confirmation ID: [id number] DOCUMENT ID: [id number] HEMANTH ASHRAF MD at 0804 CC: [id number] DICTATION DATE: 09/07/18 155 AIR POLLUTION INSPECTOR: 09/07/182229 [facility] 09/07/18 [id number] [place] [address]
== END 2018-09-07 17:40 | disposition home or self-care (01) ==
LOC: D.OPS 08:15 → D.PAN 09:00 → D.OPS 09:30
PROVIDERS: Anesthesiology
DX: N47.1 Phimosis (principal); N40.1 Benign prostatic hyperplasia with lower urinary tract symptoms; N13.8 Other obstructive and reflux uropathy; N43.3 Hydrocele, unspecified; Z01.812 Encounter for preprocedural laboratory examination
CPT/HCPCS: 54161; 55040; C9740

== ENCOUNTER → 2018-09-11 15:08 | Outpatient (CLI) | payer MEDICARE, OTHER ==
[2018-09-07 11:05] VITALS: BMI 27.6
[~2018-09-11 15:08] MED LIST changes: +PLAVIX75 MG PO
== END | disposition home or self-care (01) ==
LOC: D.CT 15:08
DX: R93.89 Abnormal findings on diagnostic imaging of other specified body structures (principal)

== ENCOUNTER → 2018-09-13 12:55 | Outpatient (CLI) | payer MEDICARE, OTHER ==
[2018-09-07 11:05] VITALS: BMI 27.6
== END | disposition home or self-care (01) ==
LOC: D.RAD 09-11 13:00
PROVIDERS: ATTEND Internal Medicine Gastroenterology
DX: R13.12 Dysphagia, oropharyngeal phase (principal)

== ENCOUNTER 2018-09-14 08:48 | Outpatient (CLI) | payer MEDICARE, OTHER ==
[2018-09-07 11:05] VITALS: BMI 27.6
[~2018-09-14 08:48] MED LIST changes: -PLAVIX75 MG PO
[2018-09-14 09:23] LABS: BASOPHILS 0.6 % (0-2); EOSINOPHILS 6.1 % (0-7); HEMATOCRIT 29.4 % (42.0-54.0); HEMOGLOBIN 9.8 g/dL (13.5-17.5); IMMATURE GRANULOCYTES 0.2 % (0-5); LYMPHOCYTES 16.5 % (15-50); MCH 28.8 pg (26.0-34.0); MCHC 33.3 g/dL (31.0-37.0); MCV 86.5 fL (80.0-100.0); MEAN PLATELET VOLUME 10.1 fL (7.4-10.4); MONOCYTES 7.8 % (2-11); NEUTROPHILS 68.8 % (40-80); PLATELET COUNT 116 10x3/uL (130-400); RDW 13.5 % (11.5-14.5); WBC 4.9 10x3/uL (4.8-10.8)
[2018-09-14 09:50] LABS: ANION GAP 16.1 mmol/L (8-16); CALCIUM 8.7 mg/dL (8.5-10.1); CARBON DIOXIDE 22.3 mmol/L (21.0-32.0); CREATININE - SERUM 2.6 mg/dL (0.6-1.3); POTASSIUM - SERUM 4.4 mmol/L (3.5-5.1)
[2018-09-14 09:53] LABS: APTT 38.1 SECONDS (22.8-39.4); INR 1.26 (0.85-1.17); PROTIME 15.3 SECONDS (11.6-15.0)
[2018-09-14] MEDS ORDERED: PLAVIX75 MG PO (10:16)
--- NOTE | 2018-09-14 10:34 | NUR ---
PT STATES TAKING PLAVIX 75 MG THIS AM. CALLED SPECIALS NURSE FRANK TO INFORM HER. SHE STATES THAT WE WILL HAVE TO CANCEL THE PROCEDURE. SHE SAYS TO CALL HIS HEART DOCTOR TO SEE IF IT IS OKAY FOR PT TO STOP TAKING PLAVIX FOR 5 DAYS BEFORE THE PROCEDURE. IF IT IS OKAY, WE WILL RESCHEDULE PROCEDURE FOR NEXT WEEK. CALLED [facility] IN [place] AND THEY WILL CALL ME BACK. PT LEFT UNIT W/ AMBULATING AT 1036.
[2018-09-14 17:15] LABS: ALBUMIN 3.2 g/dL (3.4-5.0); PROTEIN - SERUM 6.5 g/dL (6.4-8.2)
== END 2018-09-14 11:00 | disposition home or self-care (01) ==
LOC: D.SP 08:48 → D.CT 11:00
PROVIDERS: Specialist; ATTEND Internal Medicine Pulmonary Disease
DX: J90 Pleural effusion, not elsewhere classified (principal); Z53.9 Procedure and treatment not carried out, unspecified reason

== ENCOUNTER 2018-09-21 09:51 | Outpatient (CLI) | payer MEDICARE, OTHER ==
[~2018-09-21 09:51] MED LIST changes: +PLAVIX75 MG PO
[2018-09-21 10:17] LABS: BASOPHILS 0.7 % (0-2); EOSINOPHILS 5.8 % (0-7); HEMATOCRIT 30.6 % (42.0-54.0); HEMOGLOBIN 10.1 g/dL (13.5-17.5); LYMPHOCYTES 14.4 % (15-50); MCH 28.8 pg (26.0-34.0); MCV 87.2 fL (80.0-100.0); MEAN PLATELET VOLUME 10.6 fL (7.4-10.4); MONOCYTES 7.2 % (2-11); NEUTROPHILS 71.9 % (40-80); PLATELET COUNT 139 10x3/uL (130-400); RBC 3.51 10x6/uL (4.20-6.10); RDW 13.4 % (11.5-14.5); WBC 5.9 10x3/uL (4.8-10.8)
[2018-09-21 10:21] LABS: ANION GAP 14.3 mmol/L (8-16); CALCIUM 8.2 mg/dL (8.5-10.1); CREATININE - SERUM 2.3 mg/dL (0.6-1.3); POTASSIUM - SERUM 4.3 mmol/L (3.5-5.1)
[2018-09-21 10:31] LABS: INR 1.24 (0.85-1.17)
--- NOTE | 2018-09-21 15:24 | NUR ---
1500 ALL VITALS SIGNS RECORDED ON PAPER FLOWSHEET. ALL DC CRITERIA MET. IV REMOVED WITH CATHALON INTACT. XRAY NEG FOR PNEUMO. SPOKE WITH FRANK IN SPECIALS. NO NEED TO KEEP FOR 4TH HOUR. ALL DC CRITERIA MET. VOICES UNDERSTANDING. DRESSED AT BEDSIDE. TAKEN OUT VIA W/C AND ASSISTED TO CAR WITH . ADVISED TO CALL OR COME BACK IF ANY PROBLEMS. DRESSING REMAINS CDI.
[2018-09-22 13:22] LABS: FUNGUS STAIN Final report (())
== END 2018-09-21 15:00 | disposition home or self-care (01) ==
LOC: D.SP 09:51 → D.CT 11:30 → D.SP 11:30
PROVIDERS: Internal Medicine Pulmonary Disease; Specialist; ATTEND Internal Medicine Pulmonary Disease
DX: J90 Pleural effusion, not elsewhere classified (principal); I50.9 Heart failure, unspecified; Z01.812 Encounter for preprocedural laboratory examination

== ENCOUNTER 2018-10-02 05:14 | Day surgery (SDC) | payer MEDICARE, OTHER ==
[~2018-10-02] VITALS: Ht 188 cm; Wt 97.5 kg
[2018-10-02 05:34] LABS: HEMATOCRIT 28.1 % (42.0-54.0); HEMOGLOBIN 9.3 g/dL (13.5-17.5); MCH 28.4 pg (26.0-34.0); MCHC 33.1 g/dL (31.0-37.0); MCV 85.9 fL (80.0-100.0); MEAN PLATELET VOLUME 9.6 fL (7.4-10.4); RBC 3.27 10x6/uL (4.20-6.10); RDW 13.3 % (11.5-14.5); WBC 4.7 10x3/uL (4.8-10.8)
[2018-10-02 05:47] LABS: ANION GAP 13.9 mmol/L (8-16); CALCIUM 8.1 mg/dL (8.5-10.1); CARBON DIOXIDE 23.2 mmol/L (21.0-32.0); CREATININE - SERUM 2.5 mg/dL (0.6-1.3); POTASSIUM - SERUM 4.1 mmol/L (3.5-5.1)
[2018-10-02] MEDS ORDERED: CARAFATE1 G PO (06:35)
[2018-10-02] MEDS ORDERED: ALBUTEROL SULF8.5 GM INH (06:36)
[2018-10-02 06:49] VITALS: BP 148/70; Ht 188 cm; Wt 97.5 kg
[2018-10-02 07:35] LABS: INR 1.29 (0.85-1.17); PROTIME 15.5 SECONDS (11.6-15.0)
[2018-10-02 07:36] LABS: APTT 38.9 SECONDS (22.8-39.4)
--- NOTE | 2018-10-02 09:18 | NUR ---
0910-RECD TO ROOM FROM PACU. DR ASHRAF IN TO GIVE REPORT TO . 0918-FULL LIQUIDS SERVED.
--- NOTE | 2018-10-02 11:45 | OP ---
PATIENT NAME: BRENDEN ROBERT MEDICAL RECORD: [id number] :39 [facility] AD[facility] DATE: SURGEON: DENNYS ASHRAF MD DATE OF OPERATION: 10/02/2018 SURGEON: Dennys Ashraf MD ANESTHESIA: General anesthesia by Boris Navarrete CRNA. DIAGNOSIS: Right scrotal hematoma, post-right hydrocelectomy. PROCEDURE: Incision and drainage of the right scrotal hematoma. FINDINGS: Right scrotal hematoma with no active bleeding sites seen. The testicle was intact and fully viable. SPECIMENS: Wound culture swabs. ESTIMATED BLOOD LOSS: Minimal. CLINICAL HISTORY: This is a 78-year-old male, who had on 09/07/2018 a circumcision, right hydrocelectomy, and UroLift times 4 implants. He has not noticed any improvement in his urinary flow. However, when I examined his hydrocele, there is a large scrotal hematoma present with a small gap in the scrotal incision through which some old blood is seeping out. He comes now to have the hematoma drained and this has a potential to convert into an abscess. He is not allergic to any medications. He was given Ancef admissions clinician to the OR. DESCRIPTION OF PROCEDURE: The patient was given induction of general anesthesia. He was placed in supine position on the OR table. He was then prepped and draped. I reopened his scrotal hydrocele incision. We got through the rather edematous dartos fascia. Going through the tunica vaginalis we released a large quantity of old blood. Going further and dissecting around the testicle, which had become adherent to the inner surface of the tunica vaginalis, I released a large quantity of old blood clots. There were some highly inflamed tissues near the superior pole of the testicle in the tunica vaginalis, which I excised. This may have been the original source of the bleeding. The testicle itself was fully viable. At this point, once all the old blood clots were evacuated, the right hemiscrotum was filled with 50% hydrogen peroxide. We then washed this out with normal saline. Packing consisting of Kerlix, which was moistened with normal saline was placed. The patient will be going home today. I will arrange for home care to change his scrotal packing once a day. TRANSINT:[id number] Voice Confirmation ID: [id number] DOCUMENT ID: [id number] DENNYS ASHRAF MD at 1145 CC: [id number] DICTATION DATE: 10/02/18 0839 PLYWOOD MATCHER: 10/02/[address] [facility] 10/02/18 [id number] [place] [address]
== END 2018-10-02 09:45 | disposition home or self-care (01) ==
LOC: D.OPS 05:14 → D.PAN 12:35 → D.OPS 15:30 → D.PAN 15:30
PROVIDERS: Anesthesiology; ATTEND Urology
DX: N99.840 Postprocedural hematoma of a genitourinary system organ or structure following a genitourinary system procedure (principal); Z01.812 Encounter for preprocedural laboratory examination; Z79.02 Long term (current) use of antithrombotics/antiplatelets

== ENCOUNTER 2018-10-02 18:46 | Inpatient (IN) | payer MEDICARE, OTHER ==
[~2018-10-02] VITALS: Ht 188 cm; Wt 96.2 kg
[~2018-10-02 18:46] MED LIST changes: +ALBUTEROL SULF8.5 GM INH
--- NOTE | 2018-10-02 19:20 | NUR ---
4X4S PLACED ON PT SCROTUM, PRESSURE APPLIED AT THIS TIME. BLEEDING CONTROLLED AT THIS TIME.
[2018-10-02 20:00] VITALS: BP 171/92
[2018-10-02 20:09] LABS: INR 1.35 (0.85-1.17); PROTIME 16.1 SECONDS (11.6-15.0)
[2018-10-02 20:10] LABS: APTT 36.9 SECONDS (22.8-39.4)
[2018-10-02 20:16] LABS: ALBUMIN 2.5 g/dL (3.4-5.0); ANION GAP 13.7 mmol/L (8-16); BILIRUBIN - TOTAL 0.46 mg/dL (0.2-1.3); CALCIUM 8.1 mg/dL (8.5-10.1); CARBON DIOXIDE 22.6 mmol/L (21.0-32.0); CREATININE - SERUM 2.4 mg/dL (0.6-1.3); POTASSIUM - SERUM 4.3 mmol/L (3.5-5.1)
[2018-10-02 20:25] LABS: BASOPHILS 0.5 % (0-2); EOSINOPHILS 4.4 % (0-7); HEMATOCRIT 26.6 % (42.0-54.0); HEMOGLOBIN 8.7 g/dL (13.5-17.5); IMMATURE GRANULOCYTES 0.2 % (0-5); LYMPHOCYTES 13.1 % (15-50); MCH 28.2 pg (26.0-34.0); MCHC 32.7 g/dL (31.0-37.0); MCV 86.4 fL (80.0-100.0); MEAN PLATELET VOLUME 10.5 fL (7.4-10.4); NEUTROPHILS 71.8 % (40-80); PLATELET COUNT 155 10x3/uL (130-400); RBC 3.08 10x6/uL (4.20-6.10); RDW 13.4 % (11.5-14.5); WBC 5.9 10x3/uL (4.8-10.8)
--- NOTE | 2018-10-02 20:30 | NUR ---
PT CONTINUES TO APPLY PRESSURE TO OUTSIDE OF DRESSING. BLEEDING APPEARS TO BE CONTROLLED AT THIS TIME.
--- NOTE | 2018-10-02 20:45 | NUR ---
SURGERY CONSENTS SIGNED AND WITNESSED AT THIS TIME.
--- NOTE | 2018-10-02 21:32 | NUR ---
PT LEFT ED VIA STRETCHER WITH OR TEAM AND DR ASHRAF.
[2018-10-02 23:42] VITALS: BP 169/69
--- NOTE | 2018-10-03 01:00 | NUR ---
FIRST UNIT PRBC'S HUNG PER HOSPITAL PROTOCAL ASESSMENT DONE PER ADMIT PACKET. DRESSING TO SCROTAL AREA C/D/I WITH NIXON CATHETER IN PLACE [place] COLORED URINE NOTED IV PATENT LEFT FOREARM NS AT 75CC'S/HR CHANGED TO PRBC'S. AT 100CC'S/HR. MONITORING VITALS DURING TRANSFUSION.
[2018-10-03 01:07] VITALS: BP 169/69; BMI 27.2
--- NOTE | 2018-10-03 01:18 | NUR ---
1ST UNIT OF PRBCs STARTED AND VERIFIED AT 0100 BY RN. VITAL SIGNS STABLE. TEMP 97.4F -CURRENT TEMP 97.6F. NO VISIBLE S/SX OF DISTRESS. PT DENIES ANY CHILLS, ITCHING, OR DISCOMFORT. WILL CONTINUE TO MONITOR CLOSELY.
--- NOTE | 2018-10-03 03:45 | NUR ---
FIRST BAG OF PRBCs FINISHED INFUSING AT 0325. VITAL SIGNS STABLE, PT REPORTS NO DISCOMFORT. TEMP IT 97.3F. SECOND BAG OF PRBCs VERIFIED AND SPIKED BY RN. WILL CONTINUE TO MONITOR CLOSELY.
--- NOTE | 2018-10-03 07:25 | NUR ---
PT RESTING IN BED. EYES OPEN. NO C/O PAIN. NO S/S OF ACUTE DISTRESS NOTED. PT HAS DRESSING TO SCROTUM. C/D/I. IV TO RIGHT FOREARM, SL. SITE PATENT WITHOUT REDNESS OR SWELLING. PT DENIES ANYTHING FURTHER AT THIS TIME. PT ALERT AND ORIENTED. AT BEDSIDE. CALL LIGHT IN REACH. WILL CONTINUE TO MONITOR.
--- NOTE | 2018-10-03 08:15 | OP ---
PATIENT NAME: BRENDEN ROBERT MEDICAL RECORD: [id number] :39 LOCATION:[id number] ADMISSION DATE:10/02/18 SURGEON: HEMANTH ASHRAF MD DATE OF OPERATION: 10/02/2018 SURGEON: Hemanth Ahsraf MD ANESTHESIA: General anesthesia by Lisa Flaherty CRNA DIAGNOSIS: Right scrotal hematoma, induced by Plavix use. PROCEDURE: Right scrotal exploration, coagulation of bleeding sites, packing of the wound. FINDINGS: Oozing from skin edges with no arterial bleeding seen. BLOOD LOSS: Minimal in the OR. SPECIMENS: None. CLINICAL HISTORY: This is a 78-year-old male who, one month ago, had a right hydrocelectomy as well as a circumcision and placement of 4 UroLift implants for BPH. He has a history of previous coronary artery bypass grafting times 1 and aortic valve replacement. When I saw him, he was not on any anticoagulation. However, in the past 2 weeks, one of his physicians started him on Plavix and told him to stop baby aspirin. When I saw him back in followup at the one marked postop point, which is 2 weeks after he started Plavix, I noticed that he had a giant right hemiscrotal hematoma with some fluid seeping out of it. Because of the risk of infection to the hematoma, I had brought him to the OR earlier this morning to evacuate the hematoma. At that time, no active bleeding was seen. I used minimal cautery during that scrotal hematoma evacuation. The wound was packed. In the postoperative period, the preoperative holding nurses changed the dressing around the packing because there was some bleeding noted. When he went home, he and his were concerned that there was a lot more bleeding present. The homecare nurse went out to see him and she was also quite concerned about the quantity of bleeding within the dressings. She called me and she asked the patient to go to the Emergency Room. His hemoglobin has dropped down to the 8 range. We have crossed and typed him. He is going to the operating room to find out where the bleeding is coming from and to stop it by coagulating it. He has not eaten anything since 11:00 a.m. today. DESCRIPTION OF PROCEDURE: The patient was placed in supine position and he was given induction of general anesthesia. We removed all of the old packing. No active bleeding was seen, although there was some slight oozing noted to be visible from the skin edges. He was prepped and draped. On examining closely the right hemiscrotal wound, there was some venous oozing from the dartos muscle cut skin edge. I coagulated these. Around the hilum of the testicle, there was also some venous oozing which I could see and this was also coagulated. Otherwise, there was really no active bleeding that was really vigorous in anyway. This was more of just a slow continuous ooze due to the effect of the Plavix. It should be noted that he did hold the Plavix 4 days prior to this procedure, but clearly the Plavix is still effective. The wound was washed out with 50% peroxide. I then looked for any further bleeding and any further bleeding points were coagulated. We then washed out the wound with normal saline. A 4-inch wide Kerlix was used with normal saline to pack the wound OPERATIVE REPORT [id number] BRENDEN ROBERT. We will do wet-to-dry packing changes once a day. I will have him brought into the hospital for observation. He will also have blood transfused tonight. I did talk to the patient's . I have told them that I feel that the Plavix is the responsible agent for this problem and that he should no longer be using it. TRANSINT:[id number] Voice Confirmation ID: [id number] DOCUMENT ID: [id number] HEMANTH ASHRAF MD at 0815 CC: [id number] DICTATION DATE: 10/02/182239 PALLIATIVE CARE SPECIALIST: 10/03/[address] [facility] [address] [place] [address]
[2018-10-03 09:36] VITALS: BP 209/86
[2018-10-03 12:03] VITALS: Ht 188 cm; Wt 96.2 kg
[2018-10-03 14:16] VITALS: BP 155/64
[2018-10-03 16:55] LABS: BASOPHILS 0.3 % (0-2); EOSINOPHILS 0.5 % (0-7); HEMATOCRIT 29.7 % (42.0-54.0); IMMATURE GRANULOCYTES 0.3 % (0-5); LYMPHOCYTES 7.2 % (15-50); MCH 29.2 pg (26.0-34.0); MCHC 33.7 g/dL (31.0-37.0); MCV 86.6 fL (80.0-100.0); MEAN PLATELET VOLUME 9.8 fL (7.4-10.4); MONOCYTES 10.1 % (2-11); NEUTROPHILS 81.6 % (40-80); PLATELET COUNT 145 10x3/uL (130-400); RBC 3.43 10x6/uL (4.20-6.10); RDW 13.4 % (11.5-14.5)
[2018-10-03 17:03] LABS: WBC 7.5 10x3/uL (4.8-10.8)
--- NOTE | 2018-10-03 17:47 | NUR ---
I have reviewed this patient and I concur with the Shift Assessment completed by the Licensed Practical Nurse today this shift.
[2018-10-03 18:04] VITALS: BP 156/56
--- NOTE | 2018-10-03 18:44 | NUR ---
PT RESTING IN BED, EYES OPEN. NO C/O PAIN. NO S/S OF ACUTE DISTRESS NOTED. PT DENIES ANYTHING FURTHER AT THIS TIME. CALL LIGHT IN REACH. WILL CONTINUE TO MONITOR.
[2018-10-03 20:00] VITALS: BP 140/64
[2018-10-04] VITALS: BP 131/55
--- NOTE | 2018-10-04 03:17 | NUR ---
2030) REC'D IN BED WATCHING TV. DRSG DRY AND INTACT TO TO POSTERIOR AREA WITH NYLON DRSG SUPPORT INTACT DENIES ANY DISCOMFORT AT PRESENT TIME.WILL CONTINUE TO MONITOR FOR ANY CHGES AND FOLLOW CURRENT PLAN OF CARE.
[2018-10-04 04:00] VITALS: BP 121/42
--- NOTE | 2018-10-04 04:27 | NUR ---
I have reviewed this patient and I concur with the Shift Assessment completed by the Licensed Practical Nurse today this shift.
--- NOTE | 2018-10-04 04:43 | NUR ---
I have reviewed this patient and I concur with the Shift Assessment completed by the Licensed Practical Nurse today this shift.
[2018-10-04 08:50] VITALS: BP 170/69
--- NOTE | 2018-10-04 09:03 | NUR ---
PATIENT IN BED, SKIN W/D TO TOUCH, COLOR PINK, RESP. REGULAR AND EVEN AT 18. ABDOMEN SOFT WITH BS + IN ALL 4 QUADS. DRESSING TO SCROTUM CHANGE BLOODY DISCHARGE NOTED, AND DRESSING REPACKED. PATIENT DENIES ANY C/O PAIN WHEN ASKED. C/L WITHIN REACH AND SR'S UP X'S 2.
--- NOTE | 2018-10-04 09:27 | MORECARE ---
CASE MANAGEMENT DISCHARGE SUMMARY PATIENT: BRENDEN ROBERT UNIT: [id number] ADM DATE: 10/02/18 AGE: 78 : 39 SEX: M ROOM/BED: D.2235 AUTHOR: JG CANTU PHYSICIAN: REFERRING PHYSICIAN: DENNYS ASHRAF MD DATE OF SERVICE: 10/04/18 Discharge Plan Patient Name: BRENDEN ROBERT [facility] : 1940 Planned Disposition: Home Anticipated Discharge Date: Discharge Date: Expected LOS: Initial Reviewer: [email or web address] Initial Review Date: 10/04/2018 Generated: 10/04/18 10:27 am Patient Name: BRENDEN ROBERT Page [phone] at 0927 All edits/amendments must be made on the electronic document DICTATION DATE: 10/04/18926 DECK SCALER: MOUNIKA 10/04/18926 RPT#: [id number] DC DATE: STATUS: ADM IN [facility] [address] [place] [address] END OF REPORT
--- NOTE | 2018-10-04 09:34 | MORECARE ---
CASE MANAGEMENT DISCHARGE SUMMARY PATIENT: BRENDEN ROBERT UNIT: [id number] ADM DATE: 10/02/18 AGE: 78 : 39 SEX: M ROOM/BED: D.2235 AUTHOR: PEPEDOC PHYSICIAN: REFERRING PHYSICIAN: DENNYS ASHRAF MD DATE OF SERVICE: 10/04/18 Discharge Plan Patient Name: BRENDEN ROBERT Facility: [facility]:[place] : 1940 Planned Disposition: Home Anticipated Discharge Date: Discharge Date: Expected LOS: Initial Reviewer: [email or web address] Initial Review Date: 10/04/2018 Generated: 10/04/18 10:34 am Comments DCP- Discharge Planning Updated by [email or web address]: Janet Marin on 10/04/18 8:[address] Patient Name: BRENDEN ROBERT Admission Status: ER Accout number: [id number] Admission Date: 10-02-2018 : 1940 Admission Diagnosis: Attending: CARLOS ASHRAF Current LOS: 2 Anticipated DC Date: Planned Disposition: Home Primary Insurance: MEDICARE A & B Discharge Planning Comments: CM met with patient to complete initial dc planning assessment. CM educated patient on the CM role and verbal consent given by patient to complete assessment. Patient lives at home with his . At discharge patient plans to return and feels this is a safe discharge. CM discussed availability of home health, rehab services, and medical equipment. Patient denied known discharge needs at this time. I questioned him on who would do his dressing change if packing was still needed daily and he states his can do it. I instructed him to question his nurse regarding wound care, voiced understanding. CM will continue to follow and will assist as needed with dc plans/needs. Exhibition Organiser: Janet Marin DCPIA - Discharge Planning Initial Assessment Updated by [email or web address]: Janet Marin on 10/04/18 9:31 am * Is the patient Alert and Oriented? Yes * How many steps to enter\exit or inside your home? 0/0 * PCP Dr. Swan * [facility] * Preadmission Environment Home with Family * ADLs Independent * Equipment Cane Walker * List name and contact numbers for known caregivers / representatives who currently or will assist patient after discharge: Jolene Robert - spouse - [phone] * Verbal permission to speak to the caregivers and representatives has been obtained from the patient. Yes * Community resources currently utilized None * Additional services required to return to the preadmission environment? No * Can the patient safely return to the preadmission environment? Yes * Has this patient been hospitalized within the prior 30 days at any hospital? No Last DP export: 10/04/18 8:27 a Patient Name: BRENDEN ROBERT Page [phone] at 0934 All edits/amendments must be made on the electronic document DICTATION DATE: 10/04/18932 HOME CARE NURSE: MOUNIKA 10/04/18932 RPT#: [id number] DC DATE: STATUS: ADM IN [facility] [address] [place] [address] END OF REPORT
[2018-10-04] MEDS ORDERED: BAYER CHEWABLE81 MG PO (09:55)
[2018-10-04] MEDS ORDERED: HYDROCODON-ACE1 EAC2 PO (10:43)
--- NOTE | 2018-10-04 11:09 | MORECARE ---
CASE MANAGEMENT DISCHARGE SUMMARY PATIENT: BRENDEN ROBERT UNIT: [id number] ADM DATE: 10/02/18 AGE: 78 : 39 SEX: M ROOM/BED: D.2235 AUTHOR: PEPEDOC PHYSICIAN: REFERRING PHYSICIAN: DENNYS ASHRAF MD DATE OF SERVICE: 10/04/18 Discharge Plan Patient Name: BRENDEN ROBERT Facility: [facility]:[place] : 1940 Planned Disposition: Home Anticipated Discharge Date: Discharge Date: Expected LOS: Initial Reviewer: [email or web address] Initial Review Date: 10/04/2018 Generated: 10/04/18 12:08 pm Comments DCP- Discharge Planning Updated by [email or web address]: Janet Marin on 10/04/18 8:[address] Patient Name: BRENDEN ROBERT Admission Status: ER Accout number: [id number] Admission Date: 10-02-2018 : 1940 Admission Diagnosis: Attending: CARLOS ASHRAF Current LOS: 2 Anticipated DC Date: Planned Disposition: Home Primary Insurance: MEDICARE A & B Discharge Planning Comments: CM met with patient to complete initial dc planning assessment. CM educated patient on the CM role and verbal consent given by patient to complete assessment. Patient lives at home with his . At discharge patient plans to return and feels this is a safe discharge. CM discussed availability of home health, rehab services, and medical equipment. Patient denied known discharge needs at this time. I questioned him on who would do his dressing change if packing was still needed daily and he states his can do it. I instructed him to question his nurse regarding wound care, voiced understanding. CM will continue to follow and will assist as needed with dc plans/needs. Fixed Assets Accountant: Janet Marin DCPIA - Discharge Planning Initial Assessment Updated by [email or web address]: Janet Marin on 10/04/18 9:31 am * Is the patient Alert and Oriented? Yes * How many steps to enter\exit or inside your home? 0/0 * PCP Dr. Swan * [facility] * Preadmission Environment Home with Family * ADLs Independent * Equipment Cane Walker * List name and contact numbers for known caregivers / representatives who currently or will assist patient after discharge: Jolene Robert - spouse - [phone] * Verbal permission to speak to the caregivers and representatives has been obtained from the patient. Yes * Community resources currently utilized None * Additional services required to return to the preadmission environment? No * Can the patient safely return to the preadmission environment? Yes * Has this patient been hospitalized within the prior 30 days at any hospital? No External Providers External Provider: [facility] Next Contact Date: Service Request Date: Service Type: Resolution: Reviewer: Comments: Last DP export: 10/04/18 8:34 a Patient Name: BRENDEN ROBERT Page [phone] at 1109 All edits/amendments must be made on the electronic document DICTATION DATE: 10/04/181107 PRODUCT MARKETING COORDINATOR: MOUNIKA 10/04/181107 RPT#: [id number] DC DATE: STATUS: ADM IN [facility] [address] [place] [address] END OF REPORT
--- NOTE | 2018-10-04 12:04 | NUR ---
PATIENT UP ON SOB, IV REMOVED AND [place] HAD 1300 MLS. IN [place]. DISCHARGE INSTRUCTIONS GIVEN AND VERBALIZED UNDERSTANDING. PT. DISCHARGED VIA W/C TO PRIVATE VEHICLE WITH .
--- NOTE | 2018-10-04 15:59 | MORECARE ---
CASE MANAGEMENT DISCHARGE SUMMARY PATIENT: BRENDEN ROBERT UNIT: [id number] ADM DATE: 10/02/18 AGE: 78 : 39 SEX: M ROOM/BED: D.2235 AUTHOR: PEPEDOC PHYSICIAN: REFERRING PHYSICIAN: DENNYS ASHRAF MD DATE OF SERVICE: 10/04/18 Discharge Plan Patient Name: BRENDEN ROBERT Facility: [facility]:[employer] : 1940 Planned Disposition: Home Anticipated Discharge Date: Discharge Date: 10/04/2018 Expected LOS: 0 Initial Reviewer: [email or web address] Initial Review Date: 10/04/2018 Generated: 10/04/18 4:59 pm Comments DCP- Discharge Planning Updated by [email or web address]: Janet Marin on 10/04/18 10:[address] Ashraf would like patient to have home health, states he has [facility] [place] [facility] signed. I called and spoke to Layne and clinical faxed. Layne states he is already on the books to see tomorrow. CM will continue to follow and assist with discharge planning/needs. DCP- Discharge Planning Updated by [email or web address]: Janet Marin on 10/04/18 8:[address] Patient Name: BRENDEN ROBERT Admission Status: ER Accout number: [id number] Admission Date: 10-02-2018 : 1940 Admission Diagnosis: Attending: CARLOS ASHRAF Current LOS: 2 Anticipated DC Date: Planned Disposition: Home Primary Insurance: MEDICARE A & B Discharge Planning Comments: CM met with patient to complete initial dc planning assessment. CM educated patient on the CM role and verbal consent given by patient to complete assessment. Patient lives at home with his . At discharge patient plans to return and feels this is a safe discharge. CM discussed availability of home health, rehab services, and medical equipment. Patient denied known discharge needs at this time. I questioned him on who would do his dressing change if packing was still needed daily and he states his can do it. I instructed him to question his nurse regarding wound care, voiced understanding. CM will continue to follow and will assist as needed with dc plans/needs. Manager Regional: Janet Marin DCPIA - Discharge Planning Initial Assessment Updated by [email or web address]: Janet Marin on 10/04/18 9:31 am * Is the patient Alert and Oriented? Yes * How many steps to enter\exit or inside your home? 0/0 * PCP Dr. Swan * [facility] * Preadmission Environment Home with Family * ADLs Independent * Equipment Cane Walker * List name and contact numbers for known caregivers / representatives who currently or will assist patient after discharge: Jolene Robert - [facility] - [phone] * Verbal permission to speak to the caregivers and representatives has been obtained from the patient. Yes * Community resources currently utilized None * Additional services required to return to the preadmission environment? No * Can the patient safely return to the preadmission environment? Yes * Has this patient been hospitalized within the prior 30 days at any hospital? No Last DP export: 10/04/18 10:09 a Patient Name: BRENDEN ROBERT Page [phone] at 1559 All edits/amendments must be made on the electronic document DICTATION DATE: 10/04/180 TECH INTERN: MOUNIKA 10/04/188 RPT#: [id number] DC DATE:10/04/18 STATUS: DIS IN [facility] [address] [place] [address] END OF REPORT
== END 2018-10-04 12:49 | disposition home or self-care (01) | DRG 909 ==
LOC: D.ER 18:46 → OBSVTIME 20:57 → D.EDHOLD 20:57 → D.MS 22:25
PROVIDERS: Emergency Medicine; Family Medicine; ADMIT Urology; ATTEND Urology
PROC: 0W3 Anatomical Regions, General, Control (ICD-10-PCS; principal; 2018-10-02 21:24)
DX: N99.840 Postprocedural hematoma of a genitourinary system organ or structure following a genitourinary system procedure (principal); Y83.8 Other surgical procedures as the cause of abnormal reaction of the patient, or of later complication, without mention of misadventure at the time of the procedure; E11.40 Type 2 diabetes mellitus with diabetic neuropathy, unspecified; K21.9 Gastro-esophageal reflux disease without esophagitis; I25.10 Atherosclerotic heart disease of native coronary artery without angina pectoris; I10 Essential (primary) hypertension

== ENCOUNTER 2018-10-19 08:22 | Day surgery (SDC) | payer MEDICARE, OTHER ==
[~2018-10-19] VITALS: Ht 188 cm; Wt 97.1 kg
[~2018-10-19 08:22] MED LIST changes: +BAYER CHEWABLE81 MG PO; +HYDROCODON-ACE1 EAC2 PO; +LEVOFLOXACIN500 MG PO
[2018-10-19 08:42] LABS: HEMATOCRIT 27.1 % (42.0-54.0); HEMOGLOBIN 8.9 g/dL (13.5-17.5); MCH 28.2 pg (26.0-34.0); MCHC 32.8 g/dL (31.0-37.0); MCV 85.8 fL (80.0-100.0); MEAN PLATELET VOLUME 10.5 fL (7.4-10.4); RBC 3.16 10x6/uL (4.20-6.10); RDW 13.7 % (11.5-14.5); WBC 4.9 10x3/uL (4.8-10.8)
[2018-10-19 08:54] LABS: ANION GAP 13.1 mmol/L (8-16); CALCIUM 8.4 mg/dL (8.5-10.1); CARBON DIOXIDE 25.1 mmol/L (21.0-32.0); CREATININE - SERUM 2.8 mg/dL (0.6-1.3); POTASSIUM - SERUM 4.2 mmol/L (3.5-5.1)
[2018-10-19 10:44] VITALS: BP 140/65; Ht 188 cm; Wt 97.1 kg
--- NOTE | 2018-10-19 17:08 | OP ---
PATIENT NAME: BRENDEN ROBERT MEDICAL RECORD: [id number] :[birth year] LOCATION:[facility] ADMISSION DATE: SURGEON: DENNYS ASHRAF MD DATE OF OPERATION: 10/19/2018 SURGEON: Dennys Ashraf MD ANESTHESIA: General anesthesia by Sean Avila CRNA DIAGNOSES: Scrotal hematoma and abscess wound cavity. PROCEDURE: Scrotal wound debridement and delayed primary closure. FINDINGS: Clean granulating scrotal wound. SPECIMENS: None. BLOOD LOSS: None. CLINICAL HISTORY: This is a 78-year-old male, who had a UroLift times 4, circumcision, and a right hydrocelectomy on 10/02/2018. A few days to a week after surgery, he was started on Plavix by one of his physicians. This resulted in formation of a large right hemiscrotal hematoma. This hematoma became infected and needed to be opened up and drained, and since then he has had the wound cavity packed by home care. Home care comes once a day to change the packing. The wound swabs from the infected scrotal hematoma grew E. coli, which is sensitive to all antibiotics. He is currently on Levaquin. When I examined the patient in the office yesterday, the wound was granulating very cleanly and it looks ready to be closed by delayed primary closure. He is not allergic to any medications. I gave him IV Levaquin international student counselor to the OR. DESCRIPTION OF PROCEDURE: The patient was placed in supine position and he was given induction of general anesthesia. We prepped and draped the scrotal wound. The wound edges of the skin have completely adhered to the granulation tissue of the wound itself. I therefore had to use Metzenbaum scissors to separate the plane between the scrotal skin and the underlying dartos fascia. The wound edges were freshened up by excising all of the healed over wound edges until we had fresh cut scrotal skin edges. The wound was then irrigated out using normal saline. The scrotal skin was then reapproximated using simple interrupted 3-0 Vicryl. The sutures were placed widely spaced enough so that any blood or secretions could exit through the skin incision line. Fluffs and mesh panties were then applied. I will see the patient in followup in 2 weeks' time to check on healing. TRANSINT:[id number] Voice Confirmation ID: [id number] DOCUMENT ID: [id number] DENNYS ASHRAF MD at 1708 CC: [id number] DICTATION DATE: 10/19/18 1401 ORTHODONTIC TECHNICIAN ASSISTANT: 10/19/18 1437 [facility] 10/19/18 [address] [place] [address]
== END 2018-10-19 15:30 | disposition home or self-care (01) ==
LOC: D.OPS 08:22 → D.PAN 10:45 → D.OPS 11:15
PROVIDERS: Anesthesiology; ATTEND Urology
DX: N99.840 Postprocedural hematoma of a genitourinary system organ or structure following a genitourinary system procedure (principal); Z01.812 Encounter for preprocedural laboratory examination; Z79.2 Long term (current) use of antibiotics; Z79.02 Long term (current) use of antithrombotics/antiplatelets

== ENCOUNTER 2018-10-19 20:44 | Emergency (ER) | payer MEDICARE, OTHER ==
[~2018-10-19] VITALS: Ht 188 cm; Wt 97.3 kg
[2018-10-19 20:46] VITALS: Ht 188 cm; Wt 97.3 kg
[2018-10-19 22:52] VITALS: BP 176/61
== END 2018-10-19 22:53 | disposition home or self-care (01) ==
LOC: D.ER 20:44
DX: L76.22 Postprocedural hemorrhage of skin and subcutaneous tissue following other procedure (principal)

== ENCOUNTER → 2018-11-14 07:37 | Outpatient (CLI) | payer MEDICARE, OTHER ==
[~2018-11-14 07:37] MED LIST changes: +HYDROCODON-ACE1 EAC7 PO
== END | disposition home or self-care (01) ==
LOC: D.RT 07:37
DX: R05 Cough (principal)

== ENCOUNTER → 2018-11-16 14:36 | Outpatient (CLI) | payer MEDICARE, OTHER ==
[2018-10-19 20:46] VITALS: BMI 27.5
[~2018-11-16 14:36] MED LIST changes: -HYDROCODON-ACE1 EAC7 PO
== END | disposition home or self-care (01) ==
LOC: D.RAD 14:36
PROVIDERS: ATTEND Internal Medicine Cardiovascular Disease
DX: J90 Pleural effusion, not elsewhere classified (principal)

== ENCOUNTER 2018-11-22 11:45 | Outpatient (CLI) | payer MEDICARE, OTHER ==
[~2018-11-22] VITALS: Ht 188 cm; Wt 94.5 kg
[2018-11-22 13:42] VITALS: BP 149/53; Ht 188 cm; Wt 94.5 kg
--- NOTE | 2018-11-22 14:50 | NUR ---
THORACENTESIS COMPLETED BY DR DALE. Julienne JEFFRIES, RN ENTERED ORDERS. DRESSING CDI. AT BEDSIDE. CRANBERRY JUICE AND ICE WATER BROUGHT TO PATIENT. DIETARY CALLED AND ORDERED TRAY.
--- NOTE | 2018-11-22 15:10 | NUR ---
X RAY HERE. CT CALLED BY Jeimy HDEZ RN FOR A CT AT 1600.
--- NOTE | 2018-11-22 15:18 | NUR ---
DC'D HOME WITH FAMILY/FRIEND. TAKEN NTO VEHICLE VIA WC. STABLE AT TIME OF DC.
--- NOTE | 2018-11-22 15:24 | NUR ---
DIABETIC TRAY SERVED TO PATIENT. FAMILY AT BEDSIDE.
--- NOTE | 2018-11-22 15:54 | NUR ---
UP TO BATHROOM. VOIDED WITHOUT DIFFICULTY. WAITING FOR CT SCAN
--- NOTE | 2018-11-22 16:05 | NUR ---
CALLED CT REGARDING PATIENT'S CT. RELATED WOULD BE AFTER PATIENT WHEN FINISHED WITH CURRENT PATIENT.
[2018-11-22 16:18] LABS: PROTEIN - BODY FLUID 4.4 G/DL
--- NOTE | 2018-11-22 16:25 | NUR ---
PT TO CT VIA WC.
--- NOTE | 2018-11-22 16:37 | NUR ---
BALOUISK FROM CT VIA WC.
--- NOTE | 2018-11-22 16:45 | NUR ---
SPOKE WITH Julienne JEFFRIES. WILLIAM AND RECEIVED ORDER TO DC PATIENT AND HAVE HIM RETURN TO HOSPITAL TOMORROW AT 9AM FOR CXR THEN GO TO DR DALE'S OFFICE.
--- NOTE | 2018-11-22 16:50 | NUR ---
WRITTEN AND VERBAL DC INST. GIVEN TO PT. VERBALIZED UNDERSTANDING.
--- NOTE | 2018-11-22 17:00 | NUR ---
DC'D HOME WITH FAMILY VIA PRIVATE VEHICLE. TAKEN TO VEHICLE VIA WC. STABLE AT TIME OF DC.
[2018-11-22 19:36] LABS: MACROPHAGES BF 6 %; MESOTHELIALS BF 3 %; NEUT - BF 9 %
--- NOTE | 2018-11-23 14:35 | OP ---
PATIENT NAME: BRENDEN ROBERT MEDICAL RECORD: [id number] :38 LOCATION:D[facility] ADMISSION DATE: SURGEON: ASHELY ENG MD DATE OF OPERATION: 11/22/2018 SURGEON: Ashely Eng MD ANESTHETIC: 5 mL of 1% local Xylocaine. PROCEDURE: Left ultrasound-guided thoracentesis. PROCEDURE IN DETAIL: With the patient seated upright in same day surgery and with the heart rate, blood pressure, and pulse oximetry monitored, ultrasound was used to localize a window for aspiration of left pleural effusion. Two liters of serosanguineous fluid were removed and the fluid was sent for cell count, chemistry, and culture. The patient had some pain following removal, consistent with either pneumothorax or adhesiolysis. He had mild hypertension, resolved with rest. Plan for follow up for decortication. TRANSINT:[id number] Voice Confirmation ID: [id number] DOCUMENT ID: [id number] ASHELY ENG MD at 1435 CC: [id number] DICTATION DATE: 11/22/181656 LABELER: 11/22/18 194 DEP CLI 11/22/18 [facility] [address] [place] [address]
== END 2018-11-22 17:00 | disposition home or self-care (01) ==
LOC: D.OPS 11:45
PROVIDERS: ATTEND Thoracic Surgery (Cardiothoracic Vascular Surgery)
DX: J90 Pleural effusion, not elsewhere classified (principal); Z01.812 Encounter for preprocedural laboratory examination

== ENCOUNTER → 2018-11-23 09:01 | Outpatient (CLI) | payer MEDICARE, OTHER ==
[2018-11-22 13:42] VITALS: BMI 26.7
== END | disposition home or self-care (01) ==
LOC: D.RAD 09:01
PROVIDERS: ATTEND Thoracic Surgery (Cardiothoracic Vascular Surgery)
DX: J90 Pleural effusion, not elsewhere classified (principal)

== ENCOUNTER → 2018-11-30 08:06 | Outpatient (CLI) | payer MEDICARE, OTHER ==
[2018-11-22 13:42] VITALS: BMI 26.7
[2018-11-30 09:38] LABS: CREATININE - SERUM 2.5 mg/dL (0.6-1.3)
== END | disposition home or self-care (01) ==
LOC: D.CT 08:00
PROVIDERS: ATTEND Internal Medicine Gastroenterology
DX: K31.9 Disease of stomach and duodenum, unspecified (principal); K76.6 Portal hypertension; K31.89 Other diseases of stomach and duodenum

== ENCOUNTER → 2018-12-04 09:11 | Outpatient (CLI) | payer MEDICARE, OTHER ==
[2018-11-22 13:42] VITALS: BMI 26.7
== END | disposition home or self-care (01) ==
LOC: D.US 08:30
PROVIDERS: ATTEND Urology
DX: N28.89 Other specified disorders of kidney and ureter (principal)

== ENCOUNTER → 2018-12-14 11:43 | Outpatient (CLI) | payer MEDICARE, OTHER | END | disposition home or self-care (01) | LOC: D.RAD 11:43 | DX: J90 Pleural effusion, not elsewhere classified (principal) ==

== ENCOUNTER → 2018-12-15 07:23 | Outpatient (CLI) | payer MEDICARE, OTHER ==
[2018-11-22 13:42] VITALS: BMI 26.7
[~2018-12-15 07:23] MED LIST changes: +HYDROCODON-ACE1 EAC7 PO
== END | disposition home or self-care (01) ==
LOC: D.MRI 12-14 10:00
PROVIDERS: ATTEND Urology
DX: N28.1 Cyst of kidney, acquired (principal)

== ENCOUNTER 2018-12-15 08:55 | Inpatient (IN) | payer MEDICARE, OTHER ==
[~2018-12-15 08:55] MED LIST changes: -HYDROCODON-ACE1 EAC7 PO
[2018-12-15 10:46] LABS: HEMATOCRIT 29.5 % (42.0-54.0); HEMOGLOBIN 9.4 g/dL (13.5-17.5); MCH 25.9 pg (26.0-34.0); MCHC 31.9 g/dL (31.0-37.0); MCV 81.3 fL (80.0-100.0); MEAN PLATELET VOLUME 10.1 fL (7.4-10.4); RBC 3.63 10x6/uL (4.20-6.10); RDW 14.5 % (11.5-14.5); WBC 4.5 10x3/uL (4.8-10.8)
[2018-12-15 10:59] LABS: ALBUMIN 3.4 g/dL (3.4-5.0); ANION GAP 14.4 mmol/L (8-16); BILIRUBIN - TOTAL 0.42 mg/dL (0.2-1.3); CALCIUM 9.1 mg/dL (8.5-10.1); CARBON DIOXIDE 23.6 mmol/L (21.0-32.0); CREATININE - SERUM 2.3 mg/dL (0.6-1.3); PROTEIN - SERUM 7.3 g/dL (6.4-8.2)
[2018-12-15 11:03] LABS: APPEARANCE CLEAR (CLEAR); BILIRUBIN NEGATIVE (NEGATIVE); COLOR STRAW (YELLOW); GLUCOSE NEGATIVE (NEGATIVE); KETONE NEGATIVE (NEGATIVE); NITRITE NEGATIVE (NEGATIVE); PROTEIN 1+ mg/dL (NEGATIVE); UROBILINOGEN NORMAL (NORMAL)
[2018-12-15 11:04] LABS: BACTERIA FEW /hpf (NONE SEEN); EPITHELIAL CELLS OCC /hpf (0-5); WHITE CELLS - URINE 0-5 /hpf (0-5)
[2018-12-15 11:15] LABS: INR 1.24 (0.85-1.17); PROTIME 15.1 SECONDS (11.6-15.0)
[2018-12-28] VITALS (39 sets, daily range): BP systolic 116–157; BP diastolic 43–75; BMI 26.9; BMI 26.7
[2018-12-28 08:39] LABS: HEMATOCRIT 26.5 % (42.0-54.0); HEMOGLOBIN 8.5 g/dL (13.5-17.5); MCH 25.7 pg (26.0-34.0); MCHC 32.1 g/dL (31.0-37.0); MCV 80.1 fL (80.0-100.0); RBC 3.31 10x6/uL (4.20-6.10); WBC 4.2 10x3/uL (4.8-10.8)
[2018-12-28 08:52] LABS: ANION GAP 11.5 mmol/L (8-16); APPEARANCE CLEAR (CLEAR); BILIRUBIN - TOTAL 0.34 mg/dL (0.2-1.3); CALCIUM 8.8 mg/dL (8.5-10.1); CARBON DIOXIDE 24.7 mmol/L (21.0-32.0); COLOR YELLOW (YELLOW); CREATININE - SERUM 2.4 mg/dL (0.6-1.3); POTASSIUM - SERUM 4.2 mmol/L (3.5-5.1); PROTEIN - SERUM 6.6 g/dL (6.4-8.2)
[2018-12-28 08:53] LABS: APTT 35.7 SECONDS (22.8-39.4); BACTERIA FEW /hpf (NONE SEEN); BILIRUBIN NEGATIVE (NEGATIVE); EPITHELIAL CELLS 0-5 /hpf (0-5); GLUCOSE 50 mg/dL (NEGATIVE); GRANULAR CAST NONE SEEN /lpf (NONE SEEN); HYALINE CAST NONE SEEN /lpf (NONE SEEN); INR 1.35 (0.85-1.17); KETONE NEGATIVE (NEGATIVE); MUCUS NONE SEEN /lpf (NONE SEEN); NITRITE NEGATIVE (NEGATIVE); PROTEIN 3+ mg/dL (NEGATIVE); PROTIME 16.1 SECONDS (11.6-15.0); RED CELL CAST NONE SEEN /lpf (NONE SEEN); RED CELLS - URINE NONE SEEN /hpf (0-5); SPERMATOZOA NONE SEEN /hpf (NONE SEEN); UROBILINOGEN NORMAL (NORMAL); WAXY CAST NONE SEEN /lpf (NONE SEEN); WHITE CELLS - URINE 0-5 /hpf (0-5); YEAST NONE SEEN /hpf (NONE SEEN)
--- NOTE | 2018-12-28 14:24 | NUR ---
DR MACIEL PAGED ABOUT THE PTS CONSULT. WAITING FOR DR MACIEL TO PAGE BACK.
--- NOTE | 2018-12-28 14:24 | NUR ---
DR CHADWICK AND NOTIFIED ABOUT THE PTS CONSULT.
--- NOTE | 2018-12-28 14:27 | NUR ---
DR MACIEL PAGED BACK AND AWARE OF CONSULT.
--- NOTE | 2018-12-28 14:35 | NUR ---
DR SHEN MADE AWARE OF CONSULT.
--- NOTE | 2018-12-28 14:37 | NUR ---
ATTEMPTED TO CALL DR ASHRAF. REACHED VOICE MAIL AND A MESSAGE WAS LEFT.
--- NOTE | 2018-12-28 14:51 | NUR ---
PT ARRIVED IN THE UNIT. PT SEDATD AND ON THE VENT. SEE RT NOTES FOR ETT AND VENT SETTINGS. LEFT IJ CVL NOTED. SEE IV GTTS. R RADIAL CRISTIANE NOTED. LEFT HAND IV NOTED. CT NOTED TO THE LEFT LATERAL CHEST LABLED A AND P. DR DALE STATED TO KEEP THE CT WATER SEALED. NO LEAK NOTED. FC NOTED WITH CLEAR, YELLOW URINE. EPIDURAL WITH A C/D/I SITE BUT THE EPIDURAL IS OFF PER ANESTESIA. WILL CONT 1:1 CARE.
--- NOTE | 2018-12-28 14:55 | NUR ---
DR DALE STATED TO LEAVE EPI AT 0.02.
--- NOTE | 2018-12-28 15:15 | NUR ---
PT BE STARTED INCREASING EPI AND AMANDA OFF. DR DALE AWARE. SEE FLOW SHEET. HCO3 GIVEN PER DR DALE'S REQUEST.
--- NOTE | 2018-12-28 15:30 | NUR ---
DR DALE OK'D TO START WEENING AND TO GIVE 20KCL IV OVER AN HOUR.
--- NOTE | 2018-12-28 15:40 | NUR ---
1540DR CHADWICK AT THE PTS BEDSIDE AND MADE VENT SETTINGS. 1541 DR DALE DISAPPROVED OF VENT SETTINGS AND CHANGED THEM TO THE ORIGINAL SETTINGS. SEE RT FLOW SHEET FOR VENT SETTINGS.
[2018-12-28 15:42] LABS: INR 1.44 (0.85-1.17)
--- NOTE | 2018-12-28 16:05 | NUR ---
DR DALE MADE AWARE OF THE AMOUNT OF CT DRAINAGE. SEE I&O. NO NEW ORDERS.
--- NOTE | 2018-12-28 16:15 | NUR ---
ORDERS TO GIVE 1 FFP AND TO REAPEAT PT/INR AND CBC AND TO CALL RESULTS.
--- NOTE | 2018-12-28 17:25 | NUR ---
FFP CHECKED WITH ANOTHER NURSE. FFP INITIATED. SEE BLOOD SHEET.
--- NOTE | 2018-12-28 17:30 | NUR ---
ORDERS FROM DR DALE TO GIVE 1 AMP OF HCO3 AND TO REPEAT ABG'S IN 30 MINS. CONT VENT WEENING PROCESS. SEE RT FLOW SHEET.
--- NOTE | 2018-12-28 17:57 | NUR ---
DR DALE CALLED AND MADE AWARE THAT THE PT HAS PASSED WEENING TRIALS. CALLED AND MADE AWARE THAT HE IS ALERT AND FOLLOWING COMMANDS. CURRENT ABGS READ TO DR DALE. OK TO EXTUBATE.
--- NOTE | 2018-12-28 17:58 | NUR ---
DR DALE STATED TO KEEP MEAN UNDER 100.
--- NOTE | 2018-12-28 18:00 | NUR ---
RT EXTUBATED PER ORDERS AND PLACED O2 AT 4L VIA NC. PT TOLERATING WELL.
--- NOTE | 2018-12-28 18:15 | NUR ---
PT STATED PAIN IS 10/10. DR LY NOTIFIED. HE RECOMEND A LOW DOSE OF EPIDURAL, MORPHINE QUALITY SYSTEM MANAGER, OR 2MG [id number] PRN OF MORPHINE AND TO MONITOR CLOSLEY. DR DALE CALLED AND NOTIFIED. ORDERS TO GIVE 2MG OF MORPHINE IV NOW AND START EPIDURAL BACK AT A DOSE RECOMMENED BY ANESTESIA. DR PENN NOTIFIED AND HE IS COMING IN THE UNIT TO START EPIDURAL PUMP.
--- NOTE | 2018-12-28 19:15 | NUR ---
Received patient resting in bed with eyes closed, assessment completed per flowsheet. Patient slightly lethargic, opens eyes/follows instructions. S1/S2 noted Sinus Gallo on telemetry with HR 59, rythmic and regular. Breathing is even/unlabored on 2L via NC with O2 sat 99%, RUL/RML/RLL clear with NIK clear and LLL diminished/rough. L lateral CT x2 to H2O seal with bloody drainage, no air leak with dressing CDI. Abdomen is round/soft with bowel sounds hypoactive x4, non-tender. Slaughter secured, clear yellow urine noted. R radial A-line with good waveform, wrist protector in use. Remaining pulses palpable with cap refill < 3 sec, skin warm/dry. Epidural in use for pain mgmt, line secure/intact with dressing secured. Repositioned for comfort, denies further needs at this time. See flowsheet for details, all VSS and will continue to monitor.
--- NOTE | 2018-12-28 19:15 | NUR ---
DR DALE CALLED AND UPDATED ON THE PTS CONDITION AND LAB RESULTS. ORDERS TO REPEAT PT AND INR.
[2018-12-28 19:18] LABS: BASOPHILS 0 % (0-2); EOSINOPHILS 0.3 % (0-7); HEMATOCRIT 28.8 % (42.0-54.0); HEMOGLOBIN 9.2 g/dL (13.5-17.5); IMMATURE GRANULOCYTES 0.3 % (0-5); LYMPHOCYTES 3.6 % (15-50); MCHC 31.9 g/dL (31.0-37.0); MCV 81.4 fL (80.0-100.0); MEAN PLATELET VOLUME 10.7 fL (7.4-10.4); MONOCYTES 8.3 % (2-11); NEUTROPHILS 87.5 % (40-80); PLATELET COUNT 89 10x3/uL (130-400); RBC 3.54 10x6/uL (4.20-6.10); RDW 14.9 % (11.5-14.5)
[2018-12-28 19:19] LABS: WBC 6.7 10x3/uL (4.8-10.8)
[2018-12-28 19:23] LABS: INR 1.44 (0.85-1.17)
[2018-12-28 20:11] LABS: INR 1.4 (0.85-1.17); PROTIME 16.6 SECONDS (11.6-15.0)
--- NOTE | 2018-12-28 20:55 | NUR ---
Repeat PT/INR results called to Dr Eng, orders to give 1 unit FFP. Lab notified, will give as ordered when ready.
--- NOTE | 2018-12-28 21:00 | NUR ---
Patient resting in bed with eyes closed, repositioned for comfort. Attempted to give PO HS meds with sip of water, patient began coughing and stated he didn't think he could swallow pills yet. Patient returned to ice chips and will reattempt liquids when more alert. No further needs and will continue to monitor.
--- NOTE | 2018-12-28 23:00 | NUR ---
Reassessment completed per flowsheet, no changes noted from previous assessment. S1/S2 noted NSR on telemetry with HR 64, rythmic and regular. Breathing is even/unlabored on 2L via NC with O2 sat 95%, lung sounds clear RUL/RML/RLL/NIK with LLL diminished/coarse. L lateral chest CT x2 to H2O seal, bloody drainage with no air leak noted. R radial A-line with good waveform, remaining pulses palpable with cap refill < 3 sec. Repositioned for comfort, see flowsheet for details. All VSS and will continue to monitor.
[2018-12-29] VITALS (69 sets, daily range): BP systolic 90–179; BP diastolic 42–77; BMI 27.1
--- NOTE | 2018-12-29 01:00 | NUR ---
Patient sleeping in bed with eyes closed, no s/s of distress at this time. Patient provided small sips of water, no difficulty swallowing or coughing observed. Will attempt to advance to clear liquids and continue monitoring.
--- NOTE | 2018-12-29 03:00 | NUR ---
Reassessment completed per flowsheet, no changes noted from previous assessment. Patient AO x4, calm and cooperative. S1/S2 noted NSR with rare PVC on telemetry, rythmic and regular. Breathing is even/unlabored on 2L via NC with O2 sat 94%, lung sounds clear RUL/RML/RLL/NIK with LLL diminished/coarse. L lateral chest CT x2 to H2O seal with bloody drainage, CT canister changed with no air leak noted. R radial A-line with good waveform, reamaining pulses palpable with skin warm/dry. Epidural in use, line secure/intact with dressing secure. No further needs at this time, see flowsheet for details. All VSS and will continue to monitor.
[2018-12-29 05:46] LABS: HEMATOCRIT 27.2 % (42.0-54.0); HEMOGLOBIN 8.9 g/dL (13.5-17.5); MCH 26.3 pg (26.0-34.0); MCHC 32.7 g/dL (31.0-37.0); MCV 80.2 fL (80.0-100.0); MEAN PLATELET VOLUME 9.7 fL (7.4-10.4); RBC 3.39 10x6/uL (4.20-6.10); WBC 7.9 10x3/uL (4.8-10.8)
[2018-12-29 06:01] LABS: ALBUMIN 2.5 g/dL (3.4-5.0); ANION GAP 13.1 mmol/L (8-16); BILIRUBIN - TOTAL 0.48 mg/dL (0.2-1.3); CALCIUM 7.8 mg/dL (8.5-10.1); CARBON DIOXIDE 26.2 mmol/L (21.0-32.0); CREATININE - SERUM 2.6 mg/dL (0.6-1.3); POTASSIUM - SERUM 4.3 mmol/L (3.5-5.1); PROTEIN - SERUM 5.6 g/dL (6.4-8.2)
--- NOTE | 2018-12-29 11:28 | OP ---
PATIENT NAME: BRENDEN ROBERT MEDICAL RECORD: [id number] :38 LOCATION:.[facility] [id number] ADMISSION DATE:12/28/18 SURGEON: BRENDAN DALE MD DATE OF OPERATION: 12/28/2018 SURGEON: Brendan Dale MD SUPERVISOR FUR DRESSING: Ganesh Mcknight OPERATIONS PERFORMED: 1. Left thoracotomy with total decortication. 2. Talc pleurodesis. 3. Bronchoscopy. PREOPERATIVE DIAGNOSES: Trapped left lower lobe, history of coronary artery bypass graft, recurrent left pleural effusion. POSTOPERATIVE DIAGNOSES: Trapped left lower lobe, history of coronary artery bypass graft, recurrent left pleural effusion, sudden hypotension. ANESTHESIA: Double lumen general endotracheal anesthesia. ESTIMATED BLOOD LOSS: 50 cc. COMPLICATIONS: Hypotension. SPECIMENS: Pleural peel. CONDITION: Critical. TRANSFUSIONS: Two packed red blood cells, one platelet, one FFP. DISPOSITION: ICU. OPERATIVE FINDINGS: 1. Bronchoscopy with good tube position. No endobronchial lesions. 2. A 1400 cc of clear serous left pleural fluid. 3. Dense pleural peel trapping the left lower lobe, lingula and lower half of the left upper lobe and two discrete 3-mm adhesions to the apex that likely prevented this upper lobe from expanding and filling the lower space. There were several other adhesions along the apex and the mediastinum, all of which were taken down. The inferior pulmonary ligament was freed as was the major fissure and after decortication good reexpansion. The patient suffered sudden hypotension and eventually surgery was aborted with continued air leak from the lower lobe within the bronchus. Talc had been applied to the long just prior to this. OPERATIVE INDICATION: Recurrent pleural effusion and trapped lung. DESCRIPTION OF PROCEDURE: The patient was brought to the operating suite. General anesthesia was obtained. Double lumen general endotracheal anesthesia was obtained, position was confirmed bronchoscopy. The patient was turned to the right lateral decubitus position for appropriate padding including axillary roll. Left posterolateral thoracotomy incision was made. Subcutaneous tissue was divided by electrocautery. Dissection of the rib was removed. Pleural OPERATIVE REPORT [id number] BRENDEN ROBERT cavity was entered. Pleural fluid was removed. Dense adhesions of the apex where taken down sharply. The pleural peel was incised and removed intact with several small leaks from the lung removed. The inferior pulmonary ligament was freed. The fissure was freed. Progel was placed along air leak sites in the posterior aspect of the upper lobe as well as along the fissure in the superior segment of the lower lobe. Then, some talc was applied along the upper lobe. The patient had significant hypotension, refractory to Miguel-Synephrine and requiring epinephrine. Therefore, remainder of the surgery including repair of the air leaks was aborted. Two chest tubes were quickly inserted and the chest was closed with two muscle layers, subcutaneous skin and skin clips. The patient returned to supine position, placed a single lumen tube and transferred to CV ICU. Resuscitation included increased ventilator rate and metabolic acidosis correction with bicarbonate. TRANSINT:[id number] Voice Confirmation ID: [id number] DOCUMENT ID: [id number] BRENDAN DALE MD at 1128 CC: BERNABE CHADWICK MD, BAYLEE ROME MD and CANDACE SHEN [id number] DICTATION DATE: 12/28/18 1512 PROJECT TECHNICIAN: 12/28/18 1656 ADM IN [id number] [place] [address]
--- NOTE | 2018-12-29 15:50 | NUR ---
1410: R RADIAL ART LINE DC'D. ALL IV VASODILATORS REMOVED. PLASMALYTE CONTINUES AT 30 AND ZINACEF CONTINUES AT 11.4CC/HR.
--- NOTE | 2018-12-29 18:00 | NUR ---
HIBICLENS BATH DONE. LINENS CHANGES. L CT DRESSING CHANGED. CLEANED WITH BETADINE AND DRESSED WITH DRY 4X4S AND SEURED WITH TEGADERM.
--- NOTE | 2018-12-29 19:05 | NUR ---
REPORT REC'D,PT'S CARE ASSUMED. ASSESSMENT COMPLETED PER FLOWSHEETS. PT AWAKE WATCHING TV, A/OX4, DENIES ANY DISCOMFORT AT THIS TIME. SR ON CM. LUNG SOUNDS CLEAR TO ULB WITH DIMINISHED TO LLB, UNLABORED. LEFT LATERAL CTX2 INTACT, DRESSING CLEAN AND DRY. PPP. CALL LIGHT IN REACH. BST IN REACH. HOB UP. SIDE RAILS UP.CONT TO MONITOR.
--- NOTE | 2018-12-29 19:39 | MORECARE ---
CASE MANAGEMENT DISCHARGE SUMMARY PATIENT: BRENDEN ROBERT UNIT: [id number] ADM DATE: 12/28/18 AGE: 78 : 39 SEX: M [facility] AUTHOR: PEPE,DOC PHYSICIAN: REFERRING PHYSICIAN: ASHELY DALE MD DATE OF SERVICE: 12/29/18 Discharge Plan Patient Name: BRENDEN ROBERT Facility: [facility]:[place] : 1940 Planned Disposition: Home Anticipated Discharge Date: Discharge Date: Expected LOS: Initial Reviewer: [email or web address] Initial Review Date: 12/29/2018 Generated: 12/29/18 8:39 pm Comments DCP- Discharge Planning Updated by [email or web address]: Chely Renae on 12/29/18 6:[address] Patient Name: BRENDEN ROBERT Admission Status: Urgent Accout number: [id number] Admission Date: 12-28-2018 : 1940 Admission Diagnosis: Attending: ASHELY DALE Current LOS: 1 Anticipated DC Date: Planned Disposition: Home Primary Insurance: MEDICARE A & B Discharge Planning Comments: CM met with patient and spouse (Jolene) at bedside after explaining CM role and obtaining verbal consent. Patient lives at home with his Jolene and plans to return there upon discharge. Patient feels this would be a safe discharge. CM discussed availability / needs of home health and medical equipment. Patient states if he should need DME then he can [facility]. Patient denies any discharge needs at this time. Patient may need walk test if still requiring 02 @ d/c. Patient states he will have his drive him home upon discharge. CM will continue to follow and assist as needed with discharge planning / needs. Network Desktop Support Specialist: Chely Renae DCPIA - Discharge Planning Initial Assessment Updated by [email or web address]: Chely Renae on 12/29/18 7:35 pm * Is the patient Alert and Oriented? Yes * How many steps to enter\exit or inside your home? * PCP [facility] * Pharmacy [facility] * Preadmission Environment Home with Family * ADLs Independent * Other Equipment WALKER, CANE, BSC * List name and contact numbers for known caregivers / representatives who currently or will assist patient after discharge: JOLENE ROBERT - - [phone] * Verbal permission to speak to the caregivers and representatives has been obtained from the patient. Yes * Community resources currently utilized None * Additional services required to return to the preadmission environment? No * Can the patient safely return to the preadmission environment? Yes * Has this patient been hospitalized within the prior 30 days at any hospital? No Patient Name: BRENDEN ROBERT Page [phone] at 1940 All edits/amendments must be made on the electronic document DICTATION DATE: 12/29/181938 LEAD MECHANICAL ENGINEER: MOUNIKA 12/29/181938 RPT#: [id number] GA DATE: STATUS: ADM IN [facility] [address] [place] [address] END OF REPORT
--- NOTE | 2018-12-29 21:00 | NUR ---
SCHEDULED MEDS GIVEN WITHOUT DIFFIC. PT VANDANA WELL.
--- NOTE | 2018-12-29 23:00 | NUR ---
REASSESSMENT COMPLETED. SEE FLOWSHEETS FOR ALL FINDINGS.NO ACUTE CHANGES NOTED IN PT'S CONDITION. VSS. NO NEEDS VOICES. CPOC.
[2018-12-30] VITALS (24 sets, daily range): BP systolic 101–163; BP diastolic 51–70; BMI 27.1
--- NOTE | 2018-12-30 01:00 | NUR ---
PT RESTING QUIETLY WITHOUT DISTRESS. VSS. REPOSITONED FOR COMFORT. PILLOWS IN USE FOR SUPPORT. HOB UP. CALL LIGHT IN REACH. CPOC.
--- NOTE | 2018-12-30 03:00 | NUR ---
REASSESSMENT COMPLETED PER FLOWSHEETS. PT RESTING QUIETLY WITHOUT DISTRESS. VSS. NO ACUTE CHANGES IN PT'S STATUS NOTED. CPOC.
[2018-12-30 06:27] LABS: HEMATOCRIT 26.4 % (42.0-54.0); HEMOGLOBIN 8.4 g/dL (13.5-17.5); MCHC 31.8 g/dL (31.0-37.0); MCV 81.7 fL (80.0-100.0); MEAN PLATELET VOLUME 10.7 fL (7.4-10.4); RBC 3.23 10x6/uL (4.20-6.10); RDW 15.3 % (11.5-14.5)
[2018-12-30 06:32] LABS: WBC 5.3 10x3/uL (4.8-10.8)
[2018-12-30 07:13] LABS: ALBUMIN 2.1 g/dL (3.4-5.0); ANION GAP 13.9 mmol/L (8-16); BILIRUBIN - TOTAL 0.47 mg/dL (0.2-1.3); CALCIUM 7.6 mg/dL (8.5-10.1); CARBON DIOXIDE 24.1 mmol/L (21.0-32.0); CREATININE - SERUM 2.6 mg/dL (0.6-1.3); PROTEIN - SERUM 5.3 g/dL (6.4-8.2)
--- NOTE | 2018-12-30 09:00 | NUR ---
DANGLED ON SIDE OF BED X 10 MIN.
--- NOTE | 2018-12-30 11:15 | NUR ---
L LATERAL CHEST TUBES DC'D BY DR. DALE
--- NOTE | 2018-12-30 11:30 | NUR ---
EPIDURAL DC'D BY .
--- NOTE | 2018-12-30 14:15 | NUR ---
UP TO CHAIR WITH MINIMAL ASSISTANCE. CALL LIGHT WITHIN REACH.
--- NOTE | 2018-12-30 19:15 | NUR ---
REPORT REC'D AND CARE ASSUMED, REC'D PT LYING IN BED WATCHING TV, AWAKE, ALERT, AND ORIENTED X 4, O2 @ 2 LITERS VIA NC, LIJ DL DRSG CDI BOTH PORTS SALINE LOCKED, LEFT POSTERIOR BACK DRSGS CDI, LEFT LATERAL DRSG TO PREVIOUS CT SITES CDI, ABD SOFT, BS X 4, CRITICORE NIXON PATENT DRAINING CLEAR YELLOW URINE, BILAT SCDS AND TEDS ON, PPP, AIR OVERLAY MATTRESS IN USE, PT TRANSFERRED FROM END OF [place] TO 6 TO BE CLOSER TO THE NURSES STATION, BED IN LOW POSITION, CALL LIGHT IN REACH.
--- NOTE | 2018-12-30 20:30 | NUR ---
PT DOWN IN BED, STATES "THIS IS JUST NOT COMFORTABLE", REPOSITIONED UP IN BED AND TURNED TO LEFT SIDE SUPPORTED WITH PILLOW, PT REPORTS "THAT IS BETTER", WILL MONITOR FOR CHANGES.
--- NOTE | 2018-12-30 21:00 | NUR ---
EVENING MEDS GIVEN ORDERED, PT SLEEPING AT INTERVALS, UNCOMFORTABLE IN BED, ASSISTED TO POSITION FOR COMFORT.
--- NOTE | 2018-12-30 23:00 | NUR ---
REASSESSMENT COMPLETED, PT REMAINS ORIENTED, O2 @ 2 LITERS, BP STABLE, PT REFUSES PAIN PILL WHEN OFFERED, STATES " I DON'T NEED THAT", WILL CONT TO MONITOR CLOSELY FOR CHANGES.
[2018-12-31] VITALS (24 sets, daily range): BP systolic 109–192; BP diastolic 54–76
--- NOTE | 2018-12-31 00:30 | NUR ---
PT RESTING ON RIGHT SIDE IN BED EYES CLOSED, RESP EVEN AND UNLABORED, VSS, WILL MONITOR CLOSELY FOR CHANGES IN STATUS.
--- NOTE | 2018-12-31 02:00 | NUR ---
PT ASSISTED UP TO BATHROOM X 1 ASSIST, VOIDED APPROXIMATELY 200 CC CLEAR YELLOW URINE, BED STRAIGHTENED AND PARTIAL LINEN CHANGE PROVIDED, PT DENIES PAIN, ICE WATER PROVIDED ON REQUEST, PT DENIES FURTHER NEEDS.
--- NOTE | 2018-12-31 04:15 | NUR ---
PT TAKEN TO RADIOLOGY FOR PA AND LATERAL WITH NURSE ACCOMPANING THE PATIENT, PT TOLERATED WELL.
--- NOTE | 2018-12-31 04:45 | NUR ---
PT RETURNED TO ROOM, LINEN CHANGE PROVIDED AND PT ASSISTED TO RECLINER, PT PROVIDED CLOTH TO WASH FACE AND COMB FOR HAIR, ICE WATER PROVIDED ON REQUEST, CALLL LIGHT IN REACH.
--- NOTE | 2018-12-31 05:35 | NUR ---
PT COMPLAINS OF SLIGHT INCISIONAL DISCOMFORT, RATING PAIN "3" ON 0-10 PAIN SCALE, AM LAB DRAWN FROM CV AND SENT TO LAB, FRESNO PROVIDED FOR DISCOMFORT, PT REMAINS UP IN CHAIR.
[2018-12-31 06:11] LABS: HEMATOCRIT 25.7 % (42.0-54.0); HEMOGLOBIN 8.5 g/dL (13.5-17.5); MCH 26.7 pg (26.0-34.0); MCHC 33.1 g/dL (31.0-37.0); MCV 80.8 fL (80.0-100.0); MEAN PLATELET VOLUME 10.8 fL (7.4-10.4); PLATELET COUNT 76 10x3/uL (130-400); RBC 3.18 10x6/uL (4.20-6.10); RDW 14.8 % (11.5-14.5); WBC 5.4 10x3/uL (4.8-10.8)
[2018-12-31 06:18] LABS: ALBUMIN 2.1 g/dL (3.4-5.0); ANION GAP 12.3 mmol/L (8-16); BILIRUBIN - TOTAL 0.62 mg/dL (0.2-1.3); CALCIUM 7.9 mg/dL (8.5-10.1); CARBON DIOXIDE 26.4 mmol/L (21.0-32.0); CREATININE - SERUM 2.4 mg/dL (0.6-1.3); POTASSIUM - SERUM 3.7 mmol/L (3.5-5.1); PROTEIN - SERUM 5.6 g/dL (6.4-8.2)
--- NOTE | 2018-12-31 06:45 | NUR ---
BP REMAINS ELEVATED AFTER PAIN MEDICATION, PT DENIES PAIN, 10MG HYDRALAZINE GIVEN SLOW IVP FOR SBP GREATER THAN 150
[2018-12-31 09:19] LABS: PLATELET ESTIMATE DECREASED
--- NOTE | 2018-12-31 17:30 | NUR ---
CHG BATH DONE. L LATERAL CHEST DRESSING CHANGED USING 4X4 AND TEGADERM.
--- NOTE | 2018-12-31 19:00 | NUR ---
REPORT RECEIVED, INITIAL SHIFT ASSESSMENT COMPLETE SEE FLOW SHEET, PT AAOx4, DENIES PAIN, AL DRSGS C/D/I, LEFT IJ CVL SALINE LOCKED, SCD AND JUSTA BAILEY ON, PPP, VSS, WILL CONTINUE TO MONITOR
--- NOTE | 2018-12-31 22:24 | NUR ---
SBP ELEVATED, NOTIFIED AND UPDATED, NO NEW ORDERS RECEIVED, WILL CONTINUE TO MONITOR
--- NOTE | 2018-12-31 22:30 | NUR ---
PT OOB WITH MINIMAL ASSIST TO BATHROOM, X1VOID, BACK TO BED WITH MINIMAL ASSIST, VSS
[2019-01-01] VITALS (14 sets, daily range): BP systolic 155–192; BP diastolic 62–82
--- NOTE | 2019-01-01 01:30 | NUR ---
PT OOB TO BATHROOM, PT GAIT SLIGHTLY UNSTEADY BUT ABLE TO AMBULATE WITH MINIMAL ASSIST, REPOSITIONED IN BED FOR COMFORT, VSS
--- NOTE | 2019-01-01 04:00 | NUR ---
PT UP IN BEDSIDE CHAIR, DENIES PAIN, SBP ELEVATED, AWARE OF ELEVATED SBP, OTHER VSS, WIOLL CONTINUE TO MONITOR
--- NOTE | 2019-01-01 05:00 | NUR ---
CVL DRSG CHANGED, DATE AND INITIALED, PT DENIES PPAIN OR NEEDS AT THIS TIME
--- NOTE | 2019-01-01 07:00 | NUR ---
REPORT RECEVIED FROM THE OFF GOING RN. SEE ASSESSMENT IN THE FLOW SHEET. PT SITTING AT THE SIDE OF THE BED. HTN NOTED. WILL NOTIFY DR DALE. PT DENIES PAIN/NEEDS AT THIS TIME. DRESSING NOTED TO LEFT BACK. C/D/I. RIGHT IJ CVL NOTED C/D/I AND PATEN. CALL LIGHT IN REACH. WILL CONT POC.
--- NOTE | 2019-01-01 07:30 | NUR ---
ENCOURAGED THE PT TO TCDB QH. EDUCATED THE PT ABOUT USING HIS IS 10X'S/H. PT REFUSING TO USE HIS IS. WHENEVER ASKED WHY, THE PT STATED "MY THROAT IS SORE." ON INSPECTION, WHITE PATCHES NOTED ON THE PTS TONGUE AND THE BACK OF HIS THROAT THAT LOOKS LIKE THRUSH. DR DALE WILL BE NOTIFIED WHENEVER HE ARRIVES IN THE UNIT SHORTLY.
--- NOTE | 2019-01-01 07:33 | NUR ---
DR DALE PAGED AND MADE AWARE THAT THE PTS BP IS 180/76. NO NEW ORDERS AT THIS TIME. WILL CONT POC.
--- NOTE | 2019-01-01 08:05 | NUR ---
DR DALE AT THE PTS BEDSIDE. MADE HIM AWARE THAT THE PT IS REFUSING TO USE HIS IS BECAUSE OF HIS THROAT BEING SORE. EXPLAINED THAT THE PT HAS WHITE PATCHES ON HIS TONGUE AND IN THE BACK OF HIS THROAT. N.O FROM DR DALE FOR ONCOLOGY MOUTH WASH SWISH AND SWALLOW TID.
--- NOTE | 2019-01-01 08:29 | NUR ---
PT GOING DOWN FOR AN XRAY. LEFT IN A STABLE CONDITION.
--- NOTE | 2019-01-01 10:00 | NUR ---
BLOOD REDRAWN PER LAB FOR ABNORMAL RESULTS.
[2019-01-01 10:07] LABS: BASOPHILS 0.2 % (0-2); EOSINOPHILS 5.4 % (0-7); HEMATOCRIT 27.7 % (42.0-54.0); HEMOGLOBIN 8.9 g/dL (13.5-17.5); IMMATURE GRANULOCYTES 0.2 % (0-5); LYMPHOCYTES 9.7 % (15-50); MCH 26.1 pg (26.0-34.0); MCHC 32.1 g/dL (31.0-37.0); MCV 81.2 fL (80.0-100.0); MEAN PLATELET VOLUME 10.1 fL (7.4-10.4); MONOCYTES 10.3 % (2-11); NEUTROPHILS 74.2 % (40-80); RBC 3.41 10x6/uL (4.20-6.10); WBC 4.9 10x3/uL (4.8-10.8)
[2019-01-01 10:08] LABS: PLATELET COUNT 98 10x3/uL (130-400)
[2019-01-01 10:15] LABS: CALCIUM 8.7 mg/dL (8.5-10.1); CARBON DIOXIDE 24.5 mmol/L (21.0-32.0); CREATININE - SERUM 2.1 mg/dL (0.6-1.3); POTASSIUM - SERUM 3.5 mmol/L (3.5-5.1)
--- NOTE | 2019-01-01 10:43 | NUR ---
Nutrition follow up Possible d/c today Pt is on a Diabetic diet with 90-100% intake of meals past 3 days Bm yesterday Pt has no questions about home diet Encouraged good po intake RD following
[2019-01-01 11:34] LABS: APTT 37.5 SECONDS (22.8-39.4); INR 1.25 (0.85-1.17); PROTIME 15.2 SECONDS (11.6-15.0)
--- NOTE | 2019-01-01 11:42 | NUR ---
WALI THOMAS NOTIFIED ABOUT BP REMAINING TO BE ELEVATED. SEE ORDERS.
--- NOTE | 2019-01-01 13:22 | NUR ---
CONSENTS FOR CT GUIDED CT PLACED SINGED AND PLACED IN THE CHART. IR STAFF CAME AND GOT THE PT. PT LEFT VIA BED. LEFT IN A STABLE CONDITION.
--- NOTE | 2019-01-01 14:12 | NUR ---
PT BACK FROM IR. NO CT PLACED OR THOROCENTESIS PREFORMED. VSS AT THIS TIME. DR CHADWICK AT THE PTS BEDSIDE. WILL CONT POC.
[2019-01-01] MEDS ORDERED: HYDROCODON-ACE1 EAC7 PO (14:38)
--- NOTE | 2019-01-01 15:03 | CN ---
PATIENT NAME:BRENDEN ROBERT MEDICAL RECORD: [id number] : [birth year] LOCATION:[facility] ADMIT DATE: 12/28/18 ACCOUNT: [id number] CONSULTING PHYSICIAN: CANDACE SHEN MD REFERRING PHYSICIAN: ASHELY DALE MD DATE OF CONSULTATION: 12/28/2018 HISTORY OF PRESENT ILLNESS: A 78-year-old gentleman with history of coronary artery disease as well as valvular heart disease, status post ELLISON to LAD and AVR with tissue prosthesis. He underwent decortication today. Late in the postop period, he began having hypotension as well as intermittent bradycardia. He has a history of chronic recent renal insufficiency. This appears to be at baseline from labs drawn earlier today. He is mildly anemic. We are asked to see him concerning his cardiovascular status. PAST MEDICAL HISTORY: Includes; 1. History of coronary artery disease, status post coronary artery bypass grafting. 2. Aortic valve disease, status post tissue prosthesis in the same setting. 3. Hypertension, difficult to control. 4. Chronic renal insufficiency. Baseline creatinine appears to be about 2.4. ALLERGIES: None known. MEDICATIONS: Typically, include carvedilol 25 b.i.d., Crestor 20 daily, Entresto one p.o. b.i.d., hydralazine 100 b.i.d., Neurontin 100 daily, Lasix 20 daily, insulin per scale, and Synthroid 75 mcg daily. PHYSICAL EXAMINATION: GENERAL: Intubated, in no acute distress, currently in sinus with rate of 58. VITAL SIGNS: Blood pressure 129/64. HEENT: Normocephalic and atraumatic. NECK: No bruits noted. HEART: Currently, is regular with II/ systolic ejection murmur. LUNGS: Actually, good air excursion on the right. ABDOMEN: Soft and nontender. Normal bowel sounds. EXTREMITIES: Pulses are preserved, 1+. There is no edema. IMPRESSION: Transient hypotension and bradycardia, suspect multifactorial with anesthesia plus on vasodilators and beta blockers. These may have decreased clearance perioperatively. Supportive measures as you are doing. We will check echocardiographic study to assess valve and LV function. Further recommendations based on above. TRANSINT:[id number] Voice Confirmation ID: [id number] DOCUMENT ID: [id number] CANDACE SHEN MD at 1503 CC: [id number] DICTATION DATE: 12/28/18 1533 COMMUNITY PHARMACIST: 12/28/18 1711 ADM IN [facility] [id number] [place] [address]
--- NOTE | 2019-01-01 17:26 | MORECARE ---
CASE MANAGEMENT DISCHARGE SUMMARY PATIENT: BRENDEN ROBERT UNIT: [id number] ADM DATE: 12/28/18 AGE: 78 : 39 SEX: M [facility] AUTHOR: PEPE,DOC PHYSICIAN: REFERRING PHYSICIAN: ASHELY DALE MD DATE OF SERVICE: 01/01/19 Discharge Plan Patient Name: BRENDEN ROBERT Facility: [facility]:[place] : 1940 Planned Disposition: Home Anticipated Discharge Date: Discharge Date: Expected LOS: Initial Reviewer: [email or web address] Initial Review Date: 12/29/2018 Generated: 01/01/19 6:26 pm Comments DCP- Discharge Planning Updated by [email or web address]: Chely Renae on 01/01/19 4:[address] CM met with patient this am. Patient denies any discharge needs at this time. D/C IMM explained and served 01/01/19 @ 1006. CM will continue to follow and assist as needed with discharge planning / needs. DCP- Discharge Planning Updated by [email or web address]: Chely Renae on 12/29/18 6:[address] Patient Name: BRENDEN ROBERT Admission Status: Urgent Accout number: [id number] Admission Date: 12-28-2018 : 1940 Admission Diagnosis: Attending: ASHELY DALE Current LOS: 1 Anticipated DC Date: Planned Disposition: Home Primary Insurance: MEDICARE A & B Discharge Planning Comments: CM met with patient and spouse (Jolene) at bedside after explaining CM role and obtaining verbal consent. Patient lives at home with his Jolene and plans to return there upon discharge. Patient feels this would be a safe discharge. CM discussed availability / needs of home health and medical equipment. Patient states if he should need DME then he can [facility]. Patient denies any discharge needs at this time. Patient may need walk test if still requiring 02 @ d/c. Patient states he will have his drive him home upon discharge. CM will continue to follow and assist as needed with discharge planning / needs. Photographic Developer And Printer: Chely Renae DCPIA - Discharge Planning Initial Assessment Updated by [email or web address]: Chely Renae on 12/29/18 7:35 pm * Is the patient Alert and Oriented? Yes * How many steps to enter\exit or inside your home? * PCP LATR[facility] * Pharmacy [facility] * Preadmission Environment Home with Family * ADLs Independent * Other Equipment WALKER, CANE, BSC * List name and contact numbers for known caregivers / representatives who currently or will assist patient after discharge: JOLENE ROBERT - - [phone] * Verbal permission to speak to the caregivers and representatives has been obtained from the patient. Yes * Community resources currently utilized None * Additional services required to return to the preadmission environment? No * Can the patient safely return to the preadmission environment? Yes * Has this patient been hospitalized within the prior 30 days at any hospital? No Coverage Notice Reviewer: [email or web address] Rakesh Renae Notice Issued Date-Time: 01/01/2019 10:06 Notice Type: IM Discharge Notice Notice Delivered To: Patient Relationship to Patient: Self Trimmer Machine Operator Name: Delivery Method: HAND - Hand Delivered Emelyn Days: Prior Verbal Notification: Recipient Understood Notice: Yes Recipient Signature: Yes Med Rec Note Co-signed by Attending: Coverage Notice Comment: Last DP export: 12/29/18 6:39 p Patient Name: BRENDEN ROBERT Page [phone] at 1726 All edits/amendments must be made on the electronic document DICTATION DATE: 01/01/191725 RECORD KEEPER: MOUNIKA 01/01/191725 RPT#: [id number] DC DATE: STATUS: ADM IN [facility] [address] [place] [address] END OF REPORT
--- NOTE | 2019-01-01 18:00 | NUR ---
DR DALE AT THE PTS BEDSIDE OK TO DC HOME. DR DALE GOING OVER DC INSTRUCTIONS WITH THE PT.
--- NOTE | 2019-01-01 18:13 | NUR ---
CVL DC'D WITH THE CATHETER TIP INTACT.
--- NOTE | 2019-01-01 19:24 | NUR ---
PT BELONINGS ACCOUNTED FOR. DC INSTRUCTIONS INCLUDING BUT NOT, MEDS, ACTIVITY TOLERANCE. F/U APPO. AND WOUND CARE WENT OVER WITH THE PT WITH THE PRESENT. NO QUESTIONS AT THIS TIME. PT LEFT VIA WC. PT LEFT IN A PLEASANT MOOD. PT STABLE. NO S/SX OF DISTRESS/DISCOMFORT NOTED.
--- NOTE | 2019-01-03 09:16 | MORECARE ---
CASE MANAGEMENT DISCHARGE SUMMARY PATIENT: BRENDEN ROBERT UNIT: [id number] ADM DATE: 12/28/18 AGE: 78 : 39 SEX: M [facility] AUTHOR: PEPE,DOC PHYSICIAN: REFERRING PHYSICIAN: ASHELY DALE MD DATE OF SERVICE: 01/03/19 Discharge Plan Patient Name: BRENDEN ROBERT Facility: [facility]:[place] : 1940 Planned Disposition: Home Anticipated Discharge Date: Discharge Date: 01/01/2019 Expected LOS: Initial Reviewer: [email or web address] Initial Review Date: 12/29/2018 Generated: 01/03/19 10:16 am Comments DCP- Discharge Planning Updated by [email or web address]: Chely Renae on 01/01/19 4:[address] CM met with patient this am. Patient denies any discharge needs at this time. D/C IMM explained and served 01/01/19 @ 1006. CM will continue to follow and assist as needed with discharge planning / needs. DCP- Discharge Planning Updated by [email or web address]: Chely Renae on 12/29/18 6:[address] Patient Name: BRENDEN ROBERT Admission Status: Urgent Accout number: [id number] Admission Date: 12-28-2018 : 1940 Admission Diagnosis: Attending: ASHELY DALE Current LOS: 1 Anticipated DC Date: Planned Disposition: Home Primary Insurance: MEDICARE A & B Discharge Planning Comments: CM met with patient and spouse (Jolene) at bedside after explaining CM role and obtaining verbal consent. Patient lives at home with his Jolene and plans to return there upon discharge. Patient feels this would be a safe discharge. CM discussed availability / needs of home health and medical equipment. Patient states if he should need DME then he can [facility]. Patient denies any discharge needs at this time. Patient may need walk test if still requiring 02 @ d/c. Patient states he will have his drive him home upon discharge. CM will continue to follow and assist as needed with discharge planning / needs. Agriculture Scientist: Chely Renae DCPIA - Discharge Planning Initial Assessment Updated by [id number]: Chely Renae on 12/29/18 7:35 pm * Is the patient Alert and Oriented? Yes * How many steps to enter\exit or inside your home? * PCP LAT[facility]ICIA * [facility]acy [facility] * Preadmission Environment Home with Family * ADLs Independent * Other Equipment WALKER, CANE, BSC * List name and contact numbers for known caregivers / representatives who currently or will assist patient after discharge: JOLENE ORBERT - - [phone] * Verbal permission to speak to the caregivers and representatives has been obtained from the patient. Yes * Community resources currently utilized None * Additional services required to return to the preadmission environment? No * Can the patient safely return to the preadmission environment? Yes * Has this patient been hospitalized within the prior 30 days at any hospital? No Coverage Notice Reviewer: [id number] - Chely Renae Notice Issued Date-Time: 01/01/2019 10:06 Notice Type: IM Discharge Notice Notice Delivered To: Patient Relationship to Patient: Self Track Liner Operator Name: Delivery Method: HAND - Hand Delivered Emelyn Days: Prior Verbal Notification: Recipient Understood Notice: Yes Recipient Signature: Yes Med Rec Note Co-signed by Attending: Coverage Notice Comment: Last DP export: 01/01/19 4:26 p Patient Name: BRENDEN ROBERT Page [phone] at 0916 All edits/amendments must be made on the electronic document DICTATION DATE: 01/03/19915 DATA ENTRY MACHINE OPERATOR: MOUNIKA 01/03/19915 RPT#: [id number] DC DATE:01/01/19 STATUS: DIS IN [facility] [address] [place] [address] END OF REPORT
== END 2019-01-01 19:26 | disposition home or self-care (01) | DRG 164 ==
LOC: D.SDCHOLD 12-19 12:00 → D.CVICU 12-28 07:00 → D.SDCHOLD 12-28 07:00 → D.CVICU 12-28 13:45
PROVIDERS: Specialist; ADMIT Thoracic Surgery (Cardiothoracic Vascular Surgery); ATTEND Thoracic Surgery (Cardiothoracic Vascular Surgery)
PROC: 3E0L4GC Introduction of Other Therapeutic Substance into Pleural Cavity, Percutaneous Endoscopic Approach (ICD-10-PCS; 2018-12-28)
PROC: 0BJ08ZZ Inspection of Tracheobronchial Tree, Via Natural or Artificial Opening Endoscopic (ICD-10-PCS; 2018-12-28)
PROC: 0BNL0ZZ Release Left Lung, Open Approach (ICD-10-PCS; principal; 2018-12-28 10:00)
DX: J94.1 Fibrothorax (principal); N17.9 Acute kidney failure, unspecified; J93.82 Other air leak; J98.4 Other disorders of lung; J90 Pleural effusion, not elsewhere classified; E03.9 Hypothyroidism, unspecified; E11.9 Type 2 diabetes mellitus without complications; I10 Essential (primary) hypertension; I25.10 Atherosclerotic heart disease of native coronary artery without angina pectoris; I95.89 Other hypotension; R00.1 Bradycardia, unspecified; Z87.891 Personal history of nicotine dependence; Z95.1 Presence of aortocoronary bypass graft; Z95.2 Presence of prosthetic heart valve; K21.9 Gastro-esophageal reflux disease without esophagitis; I12.9 Hypertensive chronic kidney disease with stage 1 through stage 4 chronic kidney disease, or unspecified chronic kidney disease; E11.22 Type 2 diabetes mellitus with diabetic chronic kidney disease; N18.3 Chronic kidney disease, stage 3 (moderate)

== ENCOUNTER → 2019-01-08 09:31 | Outpatient (CLI) | payer MEDICARE, OTHER ==
[2018-12-30 21:02] VITALS: BMI 27.1
[~2019-01-08 09:31] MED LIST changes: +HYDROCODON-ACE1 EAC7 PO
== END | disposition home or self-care (01) ==
LOC: D.RAD 09:31
PROVIDERS: ATTEND Thoracic Surgery (Cardiothoracic Vascular Surgery)
DX: J90 Pleural effusion, not elsewhere classified (principal)

== ENCOUNTER 2019-01-17 15:29 | Inpatient (IN) | payer MEDICARE, OTHER ==
[~2019-01-17] VITALS: Ht 188 cm; Wt 92.3 kg
[2019-01-17] VITALS (12 sets, daily range): BP systolic 129–189; BP diastolic 57–72; BMI 26.9
--- NOTE | 2019-01-17 16:35 | NUR ---
RECEIVED BY WHEEL CHAIR FROM HOSPITAL STAFF. DR. DALE AT BEDSIDE SPEAKING WITH PT AND . DRESSING APPLIED TO PREVIOUS CT SITE, WNL. LOWER LUNGS DIMINISHED. PIV 20 G TO R HAND. NORMAL SINUS RATE OF 57 ON MONITOR.
--- NOTE | 2019-01-17 16:52 | NUR ---
WILLIAM FREY TO TAKE PT TO RADIOLOGY FOR PROCEDURE. CONSENTS SIGNED. LEFT UNIT WITH IR STAFF.
[2019-01-17 17:00] LABS: BASOPHILS 0.9 % (0-2); EOSINOPHILS 11.4 % (0-7); HEMATOCRIT 25.5 % (42.0-54.0); HEMOGLOBIN 8.2 g/dL (13.5-17.5); LYMPHOCYTES 16.9 % (15-50); MCH 25.9 pg (26.0-34.0); MCHC 32.2 g/dL (31.0-37.0); MCV 80.7 fL (80.0-100.0); MEAN PLATELET VOLUME 9.9 fL (7.4-10.4); NEUTROPHILS 60.8 % (40-80); RBC 3.16 10x6/uL (4.20-6.10); RDW 15.8 % (11.5-14.5); WBC 4.4 10x3/uL (4.8-10.8)
[2019-01-17 17:10] LABS: ANION GAP 13.9 mmol/L (8-16); CALCIUM 8.2 mg/dL (8.5-10.1); CARBON DIOXIDE 25.7 mmol/L (21.0-32.0); CREATININE - SERUM 2.1 mg/dL (0.6-1.3); POTASSIUM - SERUM 4.6 mmol/L (3.5-5.1)
[2019-01-17 17:12] LABS: PLATELET COUNT 141 10x3/uL (130-400)
[2019-01-17 17:13] LABS: INR 1.35 (0.85-1.17); PROTIME 16.1 SECONDS (11.6-15.0)
[2019-01-17 17:14] LABS: APTT 33.7 SECONDS (22.8-39.4)
--- NOTE | 2019-01-17 18:30 | NUR ---
RECEIVED BY RADIOLOGY TEAM, VSS, L CT 14 FR, SUCTION SET TO 20 NO AIR LEAK, DRESSING CDI. R HAND PIV SALINE LOCKED. WILL CONTINUE TO MONITOR
[2019-01-18] VITALS (25 sets, daily range): BP systolic 114–190; BP diastolic 48–94
[2019-01-18 04:51] LABS: HEMATOCRIT 25.3 % (42.0-54.0); HEMOGLOBIN 8.2 g/dL (13.5-17.5); MCH 25.9 pg (26.0-34.0); MCHC 32.4 g/dL (31.0-37.0); MCV 79.8 fL (80.0-100.0); MEAN PLATELET VOLUME 9.6 fL (7.4-10.4); RBC 3.17 10x6/uL (4.20-6.10); RDW 15.9 % (11.5-14.5); WBC 3.7 10x3/uL (4.8-10.8)
[2019-01-18 04:58] LABS: ANION GAP 10.7 mmol/L (8-16); CALCIUM 8.6 mg/dL (8.5-10.1); CARBON DIOXIDE 27.1 mmol/L (21.0-32.0)
[2019-01-18 05:00] LABS: POTASSIUM - SERUM 3.8 mmol/L (3.5-5.1)
--- NOTE | 2019-01-18 09:34 | NUR ---
PT UP IN CHAIR AT BEDSIDE. C/O BEING COLD. HAVE PLACED WORK ORDER TO WARM ROOM. MORNING MEDICATIONS HAVE BEEN GIVEN. BREAKFAST CONSUMED. PT DENIES ANY ADDITIONAL NEEDS. CALL LIGHT IN REACH.
[2019-01-18 12:12] LABS: % SATURATION 15 % (15-55); IRON 34 ug/dl (35-150); TOTAL IRON BIND CAPACITY 217 ug/dl (260-445); UNSAT IRON BIND CAPACITY 183 ug/dl (150-375)
--- NOTE | 2019-01-18 13:45 | NUR ---
TOOTHBRUSH AND PASTE PROVIDED TO PATIENT FOR ORAL CARE.
--- NOTE | 2019-01-18 18:20 | NUR ---
PT ASSISTED UP TO BEDSIDE COMMODE. BM. PT THEN ASSISTED TO BED AFTER ALL NEW LINENS PLACED.
[2019-01-19] VITALS (24 sets, daily range): BP systolic 119–179; BP diastolic 37–72; Ht 188 cm; Wt 92.3 kg
[2019-01-19 05:05] LABS: BASOPHILS 0.5 % (0-2); EOSINOPHILS 12.3 % (0-7); HEMATOCRIT 26.3 % (42.0-54.0); HEMOGLOBIN 8.3 g/dL (13.5-17.5); LYMPHOCYTES 15.4 % (15-50); MCH 25.4 pg (26.0-34.0); MCHC 31.6 g/dL (31.0-37.0); MCV 80.4 fL (80.0-100.0); MEAN PLATELET VOLUME 10.4 fL (7.4-10.4); MONOCYTES 11.3 % (2-11); NEUTROPHILS 60.5 % (40-80); PLATELET COUNT 130 10x3/uL (130-400); RBC 3.27 10x6/uL (4.20-6.10); RDW 16.2 % (11.5-14.5); WBC 4.2 10x3/uL (4.8-10.8)
[2019-01-19 05:51] LABS: ALBUMIN 2.5 g/dL (3.4-5.0); ANION GAP 12.7 mmol/L (8-16); BILIRUBIN - TOTAL 0.57 mg/dL (0.2-1.3); CALCIUM 8.5 mg/dL (8.5-10.1); CREATININE - SERUM 2.2 mg/dL (0.6-1.3); MAGNESIUM - SERUM 1.9 mg/dL (1.8-2.4); PHOSPHOROUS 3.4 mg/dL (2.5-4.9); POTASSIUM - SERUM 3.7 mmol/L (3.5-5.1); PROTEIN - SERUM 5.9 g/dL (6.4-8.2)
--- NOTE | 2019-01-19 08:27 | NUR ---
PT OFF UNIT TO CT FOR SCAN.
[2019-01-20] VITALS (17 sets, daily range): BP systolic 126–172; BP diastolic 46–70
--- NOTE | 2019-01-20 00:55 | NUR ---
1900 REPORT RECEIVED CARE ASSUMED ASSESSMENT DONE SEE FLOW SHEET VSS. NO SINGS OF ACUTE DISTRESS NOTED. 2100 MEDS GIVEN PER SEP VSS. 2300 REASSESSMENT DONE SEE FLOW SHEET VSS. 0055 WATER PROVIDED PER REQUEST WILL CONTINUE TO MONITOR.
--- NOTE | 2019-01-20 03:00 | NUR ---
REASSESSMENT DONE SEE FLOW SHEET VSS WILL CONTINUE TO MONITOR.
--- NOTE | 2019-01-20 05:00 | NUR ---
DAILY WEIGHT COLLECTED IO COLLECTED VSS. WILL CONTINUE TO MONITOR.
[2019-01-20 06:21] LABS: BASOPHILS 0.8 % (0-2); EOSINOPHILS 13.2 % (0-7); HEMATOCRIT 26.3 % (42.0-54.0); HEMOGLOBIN 8.4 g/dL (13.5-17.5); MCH 25.7 pg (26.0-34.0); MCHC 31.9 g/dL (31.0-37.0); MCV 80.4 fL (80.0-100.0); MEAN PLATELET VOLUME 9.8 fL (7.4-10.4); MONOCYTES 12.9 % (2-11); NEUTROPHILS 57.1 % (40-80); PLATELET COUNT 112 10x3/uL (130-400); RBC 3.27 10x6/uL (4.20-6.10); RDW 16.4 % (11.5-14.5); WBC 3.9 10x3/uL (4.8-10.8)
[2019-01-20 06:25] LABS: ALBUMIN 2.5 g/dL (3.4-5.0); BILIRUBIN - TOTAL 0.56 mg/dL (0.2-1.3); CALCIUM 8.6 mg/dL (8.5-10.1); CARBON DIOXIDE 25.7 mmol/L (21.0-32.0); CREATININE - SERUM 2.2 mg/dL (0.6-1.3); MAGNESIUM - SERUM 1.8 mg/dL (1.8-2.4); PHOSPHOROUS 3.5 mg/dL (2.5-4.9); POTASSIUM - SERUM 3.7 mmol/L (3.5-5.1)
--- NOTE | 2019-01-20 12:45 | NUR ---
DR. DALE HERE. L CT DC'D BY DR. DALE. DISCUSSED WITH PATIENT POSSIBLE DISCHARGE. PRIOR CHEST TUBE SITE DRAINING SCANT AMT SEROUS DRAINAGE. OLD MOST ANTERIOR SITE DRESSED WITH BETADINE OINTMENT AND DRY 4X4. SECURED WITH TAPE. INSTRUCTED BY DR. DALE TO CHANGE DRESSING IN ONE HOUR AND THEN Q2 HOURS TO MONITOR DRAINAGE.
--- NOTE | 2019-01-20 14:40 | NUR ---
L CHEST DRESSING CHANGED. 4X4 REMAINS DRY. SITE REDRESSED WITH BETADINE OINTMENT AND DRY 4X4.
--- NOTE | 2019-01-20 17:49 | MORECARE ---
CASE MANAGEMENT DISCHARGE SUMMARY PATIENT: BRENDEN ROBERT UNIT: [id number] ADM DATE: 01/17/19 AGE: 78 : 39 SEX: M ROOM/BED: [facility] AUTHOR: JG CANTU PHYSICIAN: REFERRING PHYSICIAN: ASHELY DALE MD DATE OF SERVICE: 01/20/19 Discharge Plan Patient Name: BRENDEN ROBERT [facility] [facility] 1940 Planned Disposition: Home Anticipated Discharge Date: 01/20/19 Discharge Date: Expected LOS: 3 Initial Reviewer: [email or web address] Initial Review Date: 01/17/2019 Generated: 01/20/19 6:48 pm Patient Name: BRENDEN ROBERT Page [phone] at 1747 All edits/amendments must be made on the electronic document DICTATION DATE: 01/20/191747 MILK CONDENSER: MOUNIKA 01/20/191747 RPT#: [id number] DC DATE: STATUS: ADM IN [facility] [address] [place] [address] END OF REPORT
--- NOTE | 2019-01-20 17:55 | MORECARE ---
CASE MANAGEMENT DISCHARGE SUMMARY PATIENT: BRENDEN ROBERT UNIT: [id number] ADM DATE: 01/17/19 AGE: 78 : 38 SEX: M ROOM/BED: [facility] AUTHOR: JG CANTU PHYSICIAN: REFERRING PHYSICIAN: ASHELY DALE MD DATE OF SERVICE: 01/20/19 Discharge Plan Patient Name: BRENDEN ROBERT [facility] [facility] 1940 Planned Disposition: Home Anticipated Discharge Date: 01/20/19 Discharge Date: Expected LOS: 3 Initial Reviewer: [email or web address] Initial Review Date: 01/17/2019 Generated: 01/20/19 6:55 pm DCPIA - Discharge Planning Initial Assessment Updated by [email or web address]: Estrella Dominguez on 01/20/19 5:53 pm * Is the patient Alert and Oriented? Yes * PCP DR Swan * Pharmacy [facility] in [facility] * Preadmission Environment Home with Family * ADLs Independent * Equipment Bedside Commode Cane Rolling Walker * Other Equipment No additional DME * List name and contact numbers for known caregivers / representatives who currently or will assist patient after discharge: Silke Robert - - [phone] * Verbal permission to speak to the caregivers and representatives has been obtained from the patient. Yes * Community resources currently utilized None * Please name any agencies selected above. Has had [facility] in the past * Additional services required to return to the preadmission environment? No * Can the patient safely return to the preadmission environment? Yes * Has this patient been hospitalized within the prior 30 days at any hospital? Yes Last DP export: 01/20/19 4:48 pm Patient Name: BRENDEN ROBERT Page [id number] at 175 All edits/amendments must be made on the electronic document DICTATION DATE: 01/20/191753 APPLICATION ANALYST: MOUNIKA 01/20/191753 RPT#: [id number] DC DATE: STATUS: ADM IN [facility] [address] [place] [address] END OF REPORT
--- NOTE | 2019-01-20 18:05 | NUR ---
1615: DANGLE ON SIDE OF BED. L CHEST DRESSING REMAINS DRY. 163: DR. DALE PHONED AND INFORMED THAT CT SITE HAD NO FURTHER DRAINAGE EVEN AFTER SITTING ON SIDE OF BED. RECEIVED ORDERS FOR DISCHARGE. 174: IV R HAND DC'D. 175: REVIEWED DISCHARGE INSTRUCTIONS WITH PATIENT AND . INSTRUCTED ON L CHEST DRESSING CHANGE. 180: DISCHARGED HOME WITH . ESCORTED TO CAR VIA WHEELCHAIR.
--- NOTE | 2019-01-20 18:14 | MORECARE ---
CASE MANAGEMENT DISCHARGE SUMMARY PATIENT: BRENDEN ROBERT UNIT: [id number] ADM DATE: 01/17/19 AGE: 78 : 39 SEX: M ROOM/BED: [facility] AUTHOR: PEPE,DOC PHYSICIAN: REFERRING PHYSICIAN: ASHELY DALE MD DATE OF SERVICE: 01/20/19 Discharge Plan Patient Name: BRENDEN ROBERT Facility: [facility]:[place] : 1940 Planned Disposition: Home Anticipated Discharge Date: 01/20/19 Discharge Date: 01/20/2019 Expected LOS: 3 Initial Reviewer: [email or web address] Initial Review Date: 01/17/2019 Generated: 01/20/19 7:13 pm Comments DCP- Discharge Planning Updated by [email or web address]: Estrella Dominguez on 01/20/19 5:[address] CM RECEIVED NOTIFCATION OF DISCHARGE FROM PRIMARY NURSE. CHART REVIEWED. CM TO THE BEDSIDE. THE PATIENT'S WAS JUST ARRIVING. SHE WILL PROVIDE TRANSPORTATION TO HOME. PATIENT IS ALERT AND ORIENTED. GIVES PERMISSION FOR TO BE PRESENT. THE PLAN IS TO RETURN TO THEIR HOME. THEY BOTH DECLINE HOME HEALTH SERVICES. PATIENT HAS HAD [facility] A PREVIOUS ADMISSION. DOES NOT SEE A NEED FOR SERVICES AT THIS TIME. CM ADVISED HOW TO OBTAIN HOME HEALTH IF HE CHANGES HIS MIND LATER. PATIENT FEELS HE HAS ALL THE NECESSARY DME AT HOME. HE HAS BE UP WITH PHYSICAL THERAPY. TOLERATED / AMBULATED 300 FEET WITH 10 % ASSIST AND WITH WHEELED WALKER. HE HAS A CANE, WALKER AND BSC. O2 SATS IN MID TO HIGH 90'S ON ROOM AIR. THE NURSE WILL INSTRUCT THE PATIENT'S ABOUT HIS WOUND CARE. CM EXPLAINED DISCHARGE IMM. PATIENT WANTS TO LEAVE. NO QUESTIONS NO CONCERNS. SIGNATURE OBTAINED. COPY TO THE PATIENT AND COPY TO HIS HARD COVER CHART. DCPIA - Discharge Planning Initial Assessment Updated by [id number]: Estrella Dominguez on 01/20/19 5:53 pm * Is the patient Alert and Oriented? Yes * PCP DR Swan * Pharmacy [facility] in [facility] * Preadmission Environment Home with Family * ADLs Independent * Equipment Bedside Commode Cane Rolling Walker * Other Equipment No additional DME * List name and contact numbers for known caregivers / representatives who currently or will assist patient after discharge: Silke Robert - - [phone] * Verbal permission to speak to the caregivers and representatives has been obtained from the patient. Yes * Community resources currently utilized None * Please name any agencies selected above. Has had [facility] in the past * Additional services required to return to the preadmission environment? No * Can the patient safely return to the preadmission environment? Yes * Has this patient been hospitalized within the prior 30 days at any hospital? Yes Coverage Notice Reviewer: [id number] Rakesh Dominguez Notice Issued Date-Time: 01/20/2019 17:45 Notice Type: IM Discharge Notice Notice Delivered To: Patient Relationship to Patient: Self Wardrobe Image Consultant Name: Delivery Method: HAND - Hand Delivered Emelyn Days: Prior Verbal Notification: Recipient Understood Notice: Yes Recipient Signature: Yes Med Rec Note Co-signed by Attending: Coverage Notice Comment: DISCHARGE IMM EXPLAINED TO THE PATIENT. DISCHARGE IMM SERVED. SIGNATURE OBTAINED. COPY TO THE PATIENT. COPY TO THE CHART. Last DP export: 01/20/19 4:55 pm Patient Name: BRENDEN ROBERT Page [id number] at 1814 All edits/amendments must be made on the electronic document DICTATION DATE: 01/20/191812 TRUCK RENTAL MANAGER: MOUNIKA 01/20/191812 RPT#: [id number] DC DATE:01/20/19 STATUS: DIS IN [facility] [address] [place] [address] END OF REPORT
== END 2019-01-20 18:08 | disposition home or self-care (01) | DRG 187 ==
LOC: D.CVICU 15:29
PROVIDERS: Internal Medicine Nephrology; Radiology Diagnostic Radiology; ADMIT Thoracic Surgery (Cardiothoracic Vascular Surgery); ATTEND Thoracic Surgery (Cardiothoracic Vascular Surgery)
PROC: 0W9B30Z Drainage of Left Pleural Cavity with Drainage Device, Percutaneous Approach (ICD-10-PCS; principal; 2019-01-17 17:17)
DX: J90 Pleural effusion, not elsewhere classified (principal); I13.0 Hypertensive heart and chronic kidney disease with heart failure and stage 1 through stage 4 chronic kidney disease, or unspecified chronic kidney disease; I50.30 Unspecified diastolic (congestive) heart failure; N17.9 Acute kidney failure, unspecified; J98.11 Atelectasis; E11.22 Type 2 diabetes mellitus with diabetic chronic kidney disease; N18.3 Chronic kidney disease, stage 3 (moderate); E78.5 Hyperlipidemia, unspecified; E83.51 Hypocalcemia; E11.40 Type 2 diabetes mellitus with diabetic neuropathy, unspecified; E11.21 Type 2 diabetes mellitus with diabetic nephropathy; K21.9 Gastro-esophageal reflux disease without esophagitis; D50.9 Iron deficiency anemia, unspecified; M19.90 Unspecified osteoarthritis, unspecified site; R53.81 Other malaise

== ENCOUNTER → 2019-01-22 14:03 | Outpatient (CLI) | payer MEDICARE, OTHER ==
[2019-01-19 10:11] VITALS: BMI 25.8
== END | disposition home or self-care (01) ==
LOC: D.RAD 14:03
PROVIDERS: ATTEND Thoracic Surgery (Cardiothoracic Vascular Surgery)
DX: J90 Pleural effusion, not elsewhere classified (principal)

== ENCOUNTER → 2019-02-12 10:31 | Outpatient (CLI) | payer MEDICARE, OTHER ==
[2019-01-19 10:11] VITALS: BMI 25.8
== END | disposition home or self-care (01) ==
LOC: D.RT 01-31 10:45 → D.CT 01-31 11:00 → D.RT 10:31
PROVIDERS: ATTEND Internal Medicine Pulmonary Disease
DX: J90 Pleural effusion, not elsewhere classified (principal)

== ENCOUNTER → 2020-03-19 09:34 | Outpatient (CLI) | payer MEDICARE, OTHER ==
[2019-01-19 10:11] VITALS: BMI 25.8
== END | disposition home or self-care (01) ==
LOC: D.RAD 09:34
PROVIDERS: ATTEND Internal Medicine Pulmonary Disease
DX: J90 Pleural effusion, not elsewhere classified (principal)

== ENCOUNTER → 2021-01-09 08:57 | Outpatient (CLI) | payer MEDICARE, OTHER ==
[2019-01-19 10:11] VITALS: BMI 25.8
== END | disposition home or self-care (01) ==
LOC: D.LAB 08:57
PROVIDERS: ATTEND Internal Medicine Pulmonary Disease
DX: Z11.52 Encounter for screening for COVID-19 (principal)

== ENCOUNTER 2021-01-12 05:49 | Day surgery (SDC) | payer MEDICARE, OTHER ==
[~2021-01-12] VITALS: Ht 188 cm; Wt 95.5 kg
[2021-01-12 06:19] LABS: BASOPHILS 1.1 % (0-2); EOSINOPHILS 3.1 % (0-7); HEMATOCRIT 32.6 % (42.0-54.0); HEMOGLOBIN 11.2 g/dL (13.5-17.5); LYMPHOCYTES 14.1 % (15-50); MCH 30.9 pg (26.0-34.0); MCHC 34.4 g/dL (31.0-37.0); MCV 89.7 fL (80.0-100.0); MEAN PLATELET VOLUME 8.2 fL (7.4-10.4); MONOCYTES 10.4 % (2-11); NEUTROPHILS 71.3 % (40-80); PLATELET COUNT 96 10x3/uL (130-400); RBC 3.63 10x6/uL (4.20-6.10); RDW 13.7 % (11.5-14.5); WBC 4.9 10x3/uL (4.8-10.8)
[2021-01-12 06:39] LABS: ALBUMIN 3.5 g/dL (3.4-5.0); ANION GAP 13.8 mmol/L (8-16); BILIRUBIN - TOTAL 0.65 mg/dL (0.2-1.3); CALCIUM 8.7 mg/dL (8.5-10.1); CARBON DIOXIDE 23.3 mmol/L (21.0-32.0); CREATININE - SERUM 2.5 mg/dL (0.6-1.3); POTASSIUM - SERUM 4.1 mmol/L (3.5-5.1); PROTEIN - SERUM 6.5 g/dL (6.4-8.2)
[2021-01-12 07:45] VITALS: BP 146/56; Ht 188 cm; Wt 95.5 kg
[2021-01-12 13:35] LABS: PLATELET ESTIMATE DECREASED
[2021-01-12 13:36] LABS: ROULEAUX OCC
--- NOTE | 2021-01-12 14:44 | NUR ---
1154 SBP ELEVATED. PT AND HIS STATES THAT IT GETS HIGH LIKE THIS AT HOME AND THAT HE TAKES A MEDICATIONS NEEDED WHEN SBP IS ELEVATED. PT'S IS ANXIOUS BECAUSE SHE HAS COMPANY AT HER HOUSE AND SHE IS IN A HURRY FOR HER TO BE DISCHARGED HOME. THIS MAY BE A FACTOR IN THE INCREASE IN HIS B/P AT THIS TIME. 1156 IV DC'D. CATHETER TIP INTACT. NO BLEEDING AT SITE. COBAN DRESSING APPLIED. DISCHARGE INSTRUCTIONS REVIEWED WITH PT AND HIS WHO VOICE UNDERSTANDING OF THESE INSTRUCTIONS.
== END 2021-01-12 12:15 | disposition home or self-care (01) ==
LOC: D.OPS 05:49
PROVIDERS: ATTEND Surgery
DX: R19.5 Other fecal abnormalities (principal); K21.9 Gastro-esophageal reflux disease without esophagitis; K22.2 Esophageal obstruction; K63.5 Polyp of colon; K57.30 Diverticulosis of large intestine without perforation or abscess without bleeding; K29.70 Gastritis, unspecified, without bleeding; K20.90 Esophagitis, unspecified without bleeding

== ENCOUNTER → 2021-01-14 10:02 | Outpatient (CLI) | payer MEDICARE, OTHER ==
[2021-01-12 07:45] VITALS: BMI 27.0
== END | disposition home or self-care (01) ==
LOC: D.RAD 10-13 11:00 → D.RT 10-13 11:00 → D.RAD 10-13 11:45 → D.RT 10:00
PROVIDERS: ATTEND Internal Medicine Pulmonary Disease
DX: J98.4 Other disorders of lung (principal); Z11.52 Encounter for screening for COVID-19